=== PATIENT | female | born 1990 | race Caucasian/White ===

== ENCOUNTER 2016-04-27 23:17 | Emergency (ER) | payer OTHER ==
[2016-04-27 23:37] VITALS: RESP 18
[2016-04-27] MEDS ORDERED: SODIUM CHLORIDE 0.9% 1,000 ML IV STA (23:46)
--- NOTE | 2016-04-28 00:08 | ED ---
Nausea/Vomiting/Diarrhea HPI - General Chief complaint: Nausea/Vomiting/Diarrhea Stated complaint: Vomiting Time Seen by Provider: 04/27/16 23:46 Source: patient, RN notes reviewed Mode of arrival: ambulatory Limitations: no limitations - History of Present Illness Initial comments: 25-year-old female presents emergency Department chief complaint nausea vomiting diarrhea that started this afternoon. Patient states a sudden onset of symptoms and she's had multiple episodes of vomiting. She states she's been vomiting every 15 minutes since 9 PM. denies any hematemesis copremesis. Patient denies any melena or hematochezia. She states she has had some sick contacts with similar symptoms. Patient denies fever, chills, headache, dizziness currently neck stiffness. Patient has no chest pain or shortness of breath. Patient states she is currently taking medications for thyroid disease. - Related Data Home Medications Medication Instructions Recorded Confirmed Levothyroxine Sodium [Synthroid] 150 mcg PO DAILY 04/27/16 04/27/16 Previous Rx's Medication Instructions Recorded Ondansetron Odt [Zofran Odt] 4 mg PO Q8HR PRN #10 tab 04/28/16 Allergies Allergy/AdvReac Type Severity Reaction Status Date / Time No Known Allergies Allergy Verified 04/27/16 23:37 Review of Systems ROS Statement: Those systems with pertinent positive or pertinent negative responses have been documented in the HPI. ROS Other: All systems not noted in ROS Statement are negative. Past Medical History Past Medical History: Thyroid Disorder Additional Past Medical History / Comment(s): History of delivery. History of Any Multi-Drug Resistant Organisms: None Reported Past Surgical History: Section Past Anesthesia/Blood Transfusion Reactions: No Reported Reaction Past Psychological History: No Psychological Hx Reported Smoking Status: Never smoker Past Alcohol Use History: Occasional Past Drug Use History: None Reported - Past Family History Father Family Medical History: No Reported History Mother Family Medical History: No Reported History General Exam Limitations: no limitations General appearance: alert, in no apparent distress Head exam: Present: atraumatic, normocephalic, normal inspection Eye exam: Present: normal appearance, PERRL, EOMI. Absent: scleral icterus, conjunctival injection, periorbital swelling ENT exam: Present: normal exam, normal oropharynx, mucous membranes moist, TM's normal bilaterally, normal external ear exam Neck exam: Present: normal inspection, full ROM. Absent: tenderness, meningismus, lymphadenopathy Respiratory exam: Present: normal lung sounds bilaterally. Absent: respiratory distress, wheezes, rales, rhonchi, stridor Cardiovascular Exam: Present: normal rhythm, tachycardia, normal heart sounds. Absent: systolic murmur, diastolic murmur, rubs, gallop, clicks GI/Abdominal exam: Present: soft, tenderness (Mild to moderate right upper quadrant tenderness, epigastric tenderness), normal bowel sounds. Absent: distended, guarding, rebound, rigid Back exam: Absent: CVA tenderness (R), CVA tenderness (L) Skin exam: Present: warm, dry, intact, normal color. Absent: rash Course Vital Signs 04/27/16 23:34 Temperature 96.9 F L Pulse Rate 113 H Respiratory 18 Rate Blood Pressure 105/69 O2 Sat by Pulse 100 Oximetry Medical Decision Making - Medical Decision Making 25-year-old female presented for nausea vomiting. Patient states she does feel much improved at this time. Patient we discharged. Patient appears to have gastroenteritis and has had contacts with some her symptoms - Lab Data Result diagrams: 04/28/16 00:30 04/28/16 00:30 Lab Results 04/28/16 04/28/16 Range/Units 00:30 00:30 WBC 14.4 H (3.8-10.6) k/uL RBC 5.07 (3.80-5.40) m/uL Hgb 14.9 (11.4-16.0) gm/dL Hct 44.1 (34.0-46.0) % MCV 87.0 (80.0-100.0) fL MCH 29.5 (25.0-35.0) pg MCHC 33.9 (31.0-37.0) g/dL RDW 13.2 (11.5-15.5) % Plt Count 287 (150-450) k/uL Neutrophils % 91 % Lymphocytes % 4 % Monocytes % 4 % Eosinophils % 1 % Basophils % 0 % Neutrophils # 13.1 H (1.3-7.7) k/uL Lymphocytes # 0.6 L (1.0-4.8) k/uL Monocytes # 0.6 (0-1.0) k/uL Eosinophils # 0.1 (0-0.7) k/uL Basophils # 0.0 (0-0.2) k/uL Sodium 143 (137-145) mmol/L Potassium 4.1 (3.5-5.1) mmol/L Chloride 106 (98-107) mmol/L Carbon Dioxide 22 (22-30) mmol/L Anion Gap 15 mmol/L BUN 15 (7-17) mg/dL Creatinine 0.70 (0.52-1.04) mg/dL Est GFR (MDRD) Af Amer >60 (>60 ml/min/1.73 sqM) Est GFR (MDRD) Non-Af >60 (>60 ml/min/1.73 sqM) Glucose 112 H (74-99) mg/dL Calcium 9.7 (8.4-10.2) mg/dL Total Bilirubin 0.7 (0.2-1.3) mg/dL AST 21 (14-36) U/L ALT 27 (9-52) U/L Alkaline Phosphatase 72 (38-126) U/L Total Protein 8.1 (6.3-8.2) g/dL Albumin 4.9 (3.5-5.0) g/dL Amylase 64 (30-110) U/L Lipase 88 (23-300) U/L Disposition Clinical Impression: Gastroenteritis Disposition: HOME SELF-CARE Condition: Stable Instructions: Acute Nausea and Vomiting (ED) Additional Instructions: Please return to the Emergency Department if symptoms worsen or any other concerns. Prescriptions: Ondansetron Odt [Zofran Odt] 4 mg PO Q8HR PRN #10 tab PRN Reason: Nausea Time of Disposition: 02:52
[2016-04-28] MEDS: ONDANSETRON 4 MG/2 ML VIAL IVP STA ×2 (00:29→02:31)
[2016-04-28 00:59] LABS: Basophils % (A) 0 %; CH 30.5; CHCM 35.2; Eosinophils # (A) 0.1 k/uL (0-0.7); Eosinophils % (A) 1 %; HCT 44.1 % (34.0-46.0); HDW 3.29; HGB 14.9 gm/dL (11.4-16.0); Luc # (Auto) 0.08; Luc % (Auto) 1; Lymphocytes # (A) 0.6 k/uL (1.0-4.8); Lymphocytes % (A) 4 %; MCH 29.5 pg (25.0-35.0); MCHC 33.9 g/dL (31.0-37.0); Mean Platelet Volume 6.3; Monocytes # (A) 0.6 k/uL (0-1.0); Monocytes % (A) 4 %; Neutrophils # (A) 13.1 k/uL (1.3-7.7); Neutrophils % (A) 91 %; RBC 5.07 m/uL (3.80-5.40); RDW 13.2 % (11.5-15.5); WBC 14.4 k/uL (3.8-10.6); WBC (Perox) 14.53
[2016-04-28 01:03] LABS: ALT 27 U/L (9-52); AST 21 U/L (14-36); Alkaline Phosphatase 72 U/L (38-126); Amylase 64 U/L (30-110); Anion Gap 15 mmol/L; Blood Urea Nitrogen 15 mg/dL (7-17); Calcium 9.7 mg/dL (8.4-10.2); Carbon Dioxide 22 mmol/L (22-30); Chloride 106 mmol/L (98-107); Glucose 112 mg/dL (74-99); Non-African American GFR(MDRD) >60 (>60 ml/min/1.73 sqM); Potassium 4.1 mmol/L (3.5-5.1); Sodium 143 mmol/L (137-145); Total Bilirubin 0.7 mg/dL (0.2-1.3); Total Protein 8.1 g/dL (6.3-8.2)
[2016-04-28] MEDS ORDERED: ONDANSETRON 4 MG ODT STARTER PACK 2 TAB BTL PO STA (01:47)
[2016-04-28 03:51] VITALS: BP 102/56; PULSE 83; TEMP 99.2
== END 2016-04-28 03:49 | disposition home or self-care (01) ==
LOC: EC 23:17
DX: K52.9 Noninfective gastroenteritis and colitis, unspecified (principal); E07.9 Disorder of thyroid, unspecified; Z79.899 Other long term (current) drug therapy
CPT/HCPCS: 36415; 80053; 82150; 83690; 85025; 99284; 96374; 96361; J2405; S0119

== ENCOUNTER 2017-07-07 10:10 | Outpatient (CLI) | payer OTHER ==
[2017-07-07] MEDS ORDERED: LACTATED RINGERS 1,000 ML IV ONE (11:15)
--- NOTE | 2017-07-07 12:32 | US ---
EXAMINATION TYPE: US OB TV Cervical Measurement DATE OF EXAM: 07/07/2017 COMPARISON: NONE REASON FOR EXAM: Per Ordering Physician?this transvaginal scan is to assess the CERVICAL LENGTH for i ncompetence or funneling. GESTATIONAL AGE / DATING Physician Established: (25 weeks/1 days) EDC: 10/19/17 No dates by Current Scan MATERNAL/ SURVEY CERVICAL LENGTH (transvaginal: norm> 2.5cm): 3.6 cm Ultrasound evidence of shortened cervix? no Ultrasound evidence of funneling? no HEART RATE: 146 bpm RHYTHM: Normal IMPRESSION: No sonographic evidence of cervical length shortening or incompetent. Cervix measures 3.6 cm in lengt h. heart rate measures 1 46 bpm.
[2017-07-07 12:43] VITALS: BP 110/70; PULSE 90; RESP 18; TEMP 97.8
--- NOTE | 2017-08-05 13:41 | P.MSEPDOC ---
Presenting Problems - Arrival Data Date of Arrival on Unit: 07/07/17 Time of Arrival on Unit: 10:10 Mode of Transport: Portable - Complaint OB-Reason for Admission/Chief Complaint: Possible Onset of Labor Medical History - Information : 3 Para: 2 Term: 1 : 1 Abortions: Spontaneous or Elective: 0 Number of Living Children: 2 - Gestational Age Gestational Age by VIKTOR (wks/days): 25 Weeks and 1 Days - History Complications: Prior , Prior Review of Systems - Review of Systems Constitutional: No problems Breast: No problems ENT: No problems Cardiovascular: No problems Respiratory: No problems Gastrointestinal: No problems Genitourinary: No problems Musculoskeletal: No problems Neurological: No problems Skin: No problems Comment: 2 previous cs Vital Signs - Temperature Temperature: 97.8 F Temperature Source: Temporal Artery Scan - Pulse Brachial Pulse Rate: 90 Pulse Assessment Method: Automatic Cuff - Respirations Respiratory Rate: 18 O2 Sat by Pulse Oximetry: 99 - Blood Pressure Right Arm Blood Pressure: 110/70 Blood Pressure Mean: 83 Blood Pressure Source: Automatic Cuff Medical Screen Scoring (Pre) - Uterine Contractions Frequency: N/A - Pain Assessment Pain Location and Character: Abdomen Pain Scale Used: Numeric (1 - 10) Pain Intensity: 3 Pain Description: Cramping - Maternal Trauma Maternal Trauma: N/A - Assessment Baseline FHR: 140 Heart Rate - NICHD Category: Category I (Normal) = 0 - Total Score Total Score (Pre): 0 Physician Notification (Pre) - Physician Notified Physician Notified Date: 07/07/17 Physician Notified Time: 11:50 Physician/Practitioner Notifed:: tremp - Notification Comment Comment: Discharge home to follow up with dr diallo next week. Cervical length 3.6 cm per US Disposition - Disposition OB Disposition: Triage, Discharge to home, Written follow up instructions reviewed Discharge Date: 07/07/17 Discharge Time: 12:25 I agree with the RN Medical Screening Exam: Yes Risk & Benefit of care provided described in d/c instruction: Yes Diagnosis: FALSE LABOR BEFORE 37 COMPLETED WEEKS OF GEST, THIRD TRI
== END 2017-07-07 12:25 | disposition home or self-care (01) ==
LOC: FBPOP 10:10
PROVIDERS: ATTEND Obstetrics & Gynecology Obstetrics
DX: O47.03 False labor before 37 completed weeks of gestation, third trimester (principal); Z3A.25 25 weeks gestation of pregnancy
CPT/HCPCS: 96360; 76817; G0463; 99213

== ENCOUNTER 2017-08-16 23:03 | Outpatient (CLI) | payer OTHER ==
[2017-08-17 00:15] VITALS: BP 111/73; PULSE 96; RESP 16; TEMP 97.9
--- NOTE | 2017-08-23 11:03 | P.MSEPDOC ---
Presenting Problems - Arrival Data Date of Arrival on Unit: 08/16/17 Time of Arrival on Unit: 23:00 Mode of Transport: Ambulatory - Complaint OB-Reason for Admission/Chief Complaint: Possible Onset of Labor Medical History - Information : 3 Para: 2 Term: 1 : 1 Abortions: Spontaneous or Elective: 0 Number of Living Children: 2 - Gestational Age Gestational Age by VIKTOR (wks/days): 31 Weeks and 0 Days - History Complications: Prior Review of Systems - Review of Systems Constitutional: No problems Breast: No problems ENT: No problems Cardiovascular: No problems Respiratory: No problems Gastrointestinal: No problems Genitourinary: No problems Musculoskeletal: No problems Neurological: No problems Skin: No problems Vital Signs - Temperature Temperature: 97.9 F Temperature Source: Temporal Artery Scan - Pulse Supine Pulse Rate: 96 Pulse Assessment Method: Automatic Cuff - Respirations Respiratory Rate: 16 Oxygen Delivery Method: Room Air - Blood Pressure Left Arm Blood Pressure: 111/73 Blood Pressure Mean: 85 Blood Pressure Source: Automatic Cuff Medical Screen Scoring (Pre) - Cervical Exam Dilation: 0 cm = 0 Membranes: Intact - Uterine Contractions Frequency: N/A - Maternal Vital Signs Maternal Temperature: N/A Signs of Preeclampsia: N/A Maternal Respirations: N/A - Assessment Baseline FHR: 140 Heart Rate - NICHD Category: Category I (Normal) = 0 NST: Reactive Position: N/A - Total Score Total Score (Pre): 0 Physician Notification (Pre) - Physician Notified Physician Notified Date: 08/17/17 Physician Notified Time: 00:14 Physician/Practitioner Notifed:: dr diallo New Order Received: Yes - Notification Comment Comment: pt to discharge home Disposition - Disposition OB Disposition: Discharge to home Discharge Date: 08/17/17 Discharge Time: 00:15 I agree with the RN Medical Screening Exam: Yes Risk & Benefit of care provided described in d/c instruction: Yes Diagnosis: FALSE LABOR BEFORE 37 COMPLETED WEEKS OF GEST, THIRD TRI
== END 2017-08-17 00:16 | disposition home or self-care (01) ==
LOC: FBPOP 23:03
PROVIDERS: ATTEND Obstetrics & Gynecology
DX: O47.03 False labor before 37 completed weeks of gestation, third trimester (principal); Z3A.31 31 weeks gestation of pregnancy
CPT/HCPCS: 59025; G0463; 99213

== ENCOUNTER 2017-09-17 19:48 | Outpatient (CLI) | payer OTHER ==
[2017-09-17 22:07] VITALS: BP 117/69; PULSE 94; RESP 16; TEMP 98.1
--- NOTE | 2017-09-18 09:23 | P.MSEPDOC ---
Presenting Problems - Arrival Data Date of Arrival on Unit: 09/17/17 Time of Arrival on Unit: 20:11 Mode of Transport: Ambulatory - Complaint OB-Reason for Admission/Chief Complaint: Possible Onset of Labor Medical History - Information : 3 Para: 2 - Gestational Age Gestational Age by VIKTOR (wks/days): 35 Weeks and 3 Days Review of Systems - Review of Systems Constitutional: No problems Breast: No problems ENT: No problems Cardiovascular: No problems Respiratory: No problems Gastrointestinal: No problems Genitourinary: No problems Musculoskeletal: No problems Neurological: No problems Skin: No problems Vital Signs - Temperature Temperature: 98.1 F Temperature Source: Temporal Artery Scan - Pulse Right Sitting Brachial Pulse Rate: 94 Pulse Assessment Method: Automatic Cuff - Respirations Respiratory Rate: 16 Oxygen Delivery Method: Room Air O2 Sat by Pulse Oximetry: 99 - Blood Pressure Right Arm Sitting Blood Pressure: 117/69 Blood Pressure Mean: 85 Blood Pressure Source: Automatic Cuff Medical Screen Scoring (Pre) - Cervical Exam Dilation: 0 cm = 0 Effacement: Exam Deferred Membranes: Intact - Uterine Contractions Frequency: > 5 minutes apart = 1 Duration: > 40 seconds = 2 Intensity: N/A - Maternal Vital Signs Maternal Temperature: N/A Maternal Blood Pressure: N/A Signs of Preeclampsia: N/A Maternal Respirations: N/A - Pain Assessment Pain Location and Character: Lower, Abdomen Pain Scale Used: Numeric (1 - 10) Pain Intensity: 1 Pain Description: Cramping Pain Radiation Location: 0 Pain Frequency: Intermittent Pain Duration: 3 Pain Duration Units: Hours Pain Behavior: None Exhibited Effects of Pain: 0 Pain Aggravating Factors: None - Assessment Baseline FHR: 145 Heart Rate - NICHD Category: Category I (Normal) = 0 NST: Reactive Position: N/A Station: N/A - Total Score Total Score (Pre): 3 - Level of Risk Level of Risk: Low (0-5) Physician Notification (Pre) - Physician Notified Physician Notified Date: 09/17/17 Physician Notified Time: 20:30 Physician/Practitioner Notifed:: dr swanson New Order Received: Yes - Notification Comment Comment: pt to be discharged home after 30 mins of additional monitoring if cervix and contx pattern remain unchanged. Disposition - Disposition OB Disposition: Discharge to home Discharge Date: 07/14/18 Discharge Time: 21:15 I agree with the RN Medical Screening Exam: Yes Risk & Benefit of care provided described in d/c instruction: Yes Diagnosis: FALSE LABOR, UNSPECIFIED
== END 2017-09-17 21:15 | disposition home or self-care (01) ==
LOC: FBPOP 19:48
PROVIDERS: ATTEND Obstetrics & Gynecology
DX: O47.03 False labor before 37 completed weeks of gestation, third trimester (principal); Z3A.35 35 weeks gestation of pregnancy
CPT/HCPCS: 99213

== ENCOUNTER 2017-09-25 05:35 | Inpatient (IN) | payer OTHER ==
[2017-09-25] MEDS ORDERED: LACTATED RINGERS 1,000 ML IV ONE (07:06)
[2017-09-25] MEDS ORDERED: CITRIC ACID-SODIUM CITRATE 15 ML CUP PO ONE (07:06)
[2017-09-25] MEDS ORDERED: LACTATED RINGERS 1,000 ML IV SCH (07:15)
[2017-09-25 07:39] LABS: Basophils % (A) 0 %; Eosinophils # (A) 0.1 k/uL (0-0.7); Eosinophils % (A) 1 %; HGB 12.3 gm/dL (11.4-16.0); Hyperchromasia Slight; Lymphocytes # (A) 1.9 k/uL (1.0-4.8); Lymphocytes % (A) 18 %; MCH 32.6 pg (25.0-35.0); MCV 93.2 fL (80.0-100.0); Mean Platelet Volume 8.5; Monocytes # (A) 0.6 k/uL (0-1.0); Monocytes % (A) 6 %; Neutrophils # (A) 7.4 k/uL (1.3-7.7); Neutrophils % (A) 72 %; Platelet Count 164 k/uL (150-450); Poikilocytosis Slight; RBC 3.76 m/uL (3.80-5.40); RDW 15.2 % (11.5-15.5); WBC 10.2 k/uL (3.8-10.6)
--- NOTE | 2017-09-25 07:39 | P.HPOB ---
History of Present Illness H&P Date: 09/25/17 Chief Complaint: Strong regular uterine contractions This is a 26-year-old 3 para 03/07/2001 EDC 10/19/2017 at 36-4/7 weeks' gestation. Patient was scheduled for repeat section and tubal ligation at 39 weeks, but presents today in active labor. Uterine contractions are occurring every 3 minutes apart and she has made cervical change after observation in the triage area. Fetus is been active throughout the . She denies vaginal bleeding or fluid leakage. Past medical history is significant for hypothyroidism. Past surgical history section 2010, 2014. Current medications levothyroxine 125 mg daily, vitamin daily. ALLERGIES none known. Family history significant for bipolar disorder, situs inversus, hypothyroidism , hypoplastic heart Social history patient has never been a smoker, she denies drugs or alcohol use. She is her Obstetric history is significant for blood type A positive, rubella status immune. Thyroid function studies within normal limits. VDRL testing, hepatitis B surface antigen, HIV testing and urine culture all negative. Group B strep cultures negative. On exam this is a pleasant white female, 5 foot 4 inches, 145 pounds, vital signs are stable and the patient is afebrile. The general physical exam is within normal limits. There is no peripheral edema. The chest is clear. The cervix is 3 cm dilated, 100% effaced, vertex presentation, intact. heart rate is consistent with reactive NST. Impression: 36-4/7 weeks intrauterine , 2 previous sections declining , active labor, undesired fertility wishing tubal ligation. Plan: Close maternal and surveillance. We'll proceed with repeat low transverse section now with tubal ligation. Anesthesia staff aware. Review of Systems Constitutional: Reports as per HPI Past Medical History Past Medical History: Thyroid Disorder Additional Past Medical History / Comment(s): History of delivery. History of Any Multi-Drug Resistant Organisms: None Reported Past Surgical History: Section Past Anesthesia/Blood Transfusion Reactions: No Reported Reaction Smoking Status: Never smoker - Past Family History Father Family Medical History: No Reported History Mother Family Medical History: No Reported History Medications and Allergies Home Medications Medication Instructions Recorded Confirmed Type Levothyroxine Sodium [Synthroid] 125 mcg PO DAILY 04/27/16 09/25/17 History 78/Iron/Folate 1/Dha 1 tab PO DAILY 07/07/17 09/25/17 History [Prenate Dha Softgel] Ranitidine HCl [Zantac] 150 mg PO HS 07/07/17 09/25/17 History Allergies Allergy/AdvReac Type Severity Reaction Status Date / Time No Known Allergies Allergy Verified 09/25/17 05:55 Exam Vital Signs Temp Pulse Resp BP 09/25/17 06:00 97.0 F L 82 16 117/78 Intake and Output 09/24/17 09/25/17 09/25/17 22:59 06:59 14:59 Other: Weight 64.864 kg See dictation please Assessment and Plan Assessment: 36-4/7 weeks intrauterine , active labor, 2 previous C-sections desiring same, undesired fertility. Plan: We'll proceed with repeat low transverse section and tubal ligation. Time with Patient: Less than 30
[2017-09-25] MEDS ORDERED: PHENYLEPHRINE-0.9% NACL SYG 1 MG/10 ML SYRINGE ONE (07:45)
[2017-09-25] MEDS ORDERED: ONDANSETRON 4 MG/2 ML VIAL ONE (07:45)
[2017-09-25] MEDS ORDERED: OXYTOCIN 10 UNIT/ML 1 ML VIAL ONE (07:45)
[2017-09-25] MEDS ORDERED: MORPHINE SULFATE (PF) 0.3 MG/0.3 ML SYR ONE (07:45)
[2017-09-25] MEDS ORDERED: NALBUPHINE 10 MG/ML VIAL (10ML MDV) ONE (07:45)
[2017-09-25] MEDS ORDERED: NALBUPHINE 10 MG/ML VIAL (10ML MDV) IV PRN (08:17)
[2017-09-25] MEDS ORDERED: HYDROmorphone 1 MG/ML 1 ML SYRINGE IVP PRN (08:17)
[2017-09-25] MEDS ORDERED: NALOXONE 0.4 MG/ML 1 ML VIAL IV PRN ×2 (08:17→08:39)
[2017-09-25] MEDS ORDERED: diphenhydrAMINE 50 MG CAP PO PRN (08:39)
[2017-09-25] MEDS ORDERED: ACETAMINOPHEN TAB 325 MG TAB PO PRN (08:39)
[2017-09-25] MEDS ORDERED: ONDANSETRON 4 MG/2 ML VIAL IVP PRN (08:39)
[2017-09-25] MEDS ORDERED: diphenhydrAMINE 50 MG/ML 1 ML VIAL IVP PRN ×2 (08:39)
[2017-09-25] MEDS ORDERED: ZOLPIDEM 5 MG TAB PO PRN (08:39)
[2017-09-25] MEDS ORDERED: diphenhydrAMINE 25 MG CAP PO PRN (08:39)
[2017-09-25] MEDS ORDERED: METOCLOPRAMIDE 5 MG/ML 2 ML VIAL IVP PRN (08:39)
--- NOTE | 2017-09-25 08:39 | P.OP ---
Date of Procedure: 09/25/17 Preoperative Diagnosis: 36-4/7 weeks intrauterine , 2 previous C-sections, active labor, declining , undesired fertility Postoperative Diagnosis: Same, liveborn male Procedure(s) Performed: Repeat low transverse section, tubal ligation with Filshie clips Anesthesia: spinal Surgeon: Val Diego Form Setter #1: Harshal Thomas Estimated Blood Loss (ml): 600 IV fluids (ml): 1,000 Urine output (ml): 350 Pathology: other (Placenta) Condition: stable Disposition: PACU Description of Procedure: Patient is brought to the operating room where a spinal analgesia is administered. Antibiotics are given. The appropriate timeout is performed to assure proper patient and procedural identification. Vaughn catheter is placed to direct drainage. She is placed in the dorsal supine position with left lateral uterine displacement. The abdomen is prepped and draped in usual sterile fashion. Analgesia is checked and noted to be adequate. A repeat low transverse skin incision is made in this is carried down to the subcutaneous tissue to the fascia. Fascia is isolated, scored and extended bilaterally with curved Hurt scissors. Peritoneum is next identified and incised, there is no bowel or bladder involvement. The bladder flap is placed over the dome of the bladder, the bladder flap is created and at all times the bladder was kept well from the operative field to avoid bladder and/or ureteral injury. A low transverse uterine incision is made in this is extended bluntly. The maternal is delivered in the occiput anterior position, there is no nuchal cord noted. The oropharynx, nasopharynx, and external nares were all bulb suctioned on the abdomen. Patient is officially delivered of a liveborn male at 0805 hrs. Umbilical cord is doubly clamped and ligated, he is handed to waiting nurses for evaluation where scores of 9 and 9 at one and 5 minutes respectively are given. Infant weighs 2750 g or 6 lbs. 1 oz. The placenta is delivered manually, it is inspected and noted to be intact with trivascular cord at 0806 hrs. The uterus is then swept clean with a sterile sponge to avoid any retained products of conception. It is massaged for excellent hemostasis. The uterus is closed in a single full-thickness fashion with running locking suture of 0 Vicryl. The abdomen is then suctioned with suction on guard posterior to the uterus. Filshie clips are placed in the isthmic portions of both tubes, with care to traverse the entire diameter of the tube into the mesal salpinx. Bilateral ovaries appear normal to inspection. The uterus is then placed back into the abdominal cavity. Bilateral gutters are inspected and cleaned. Hemostasis is excellent. Peritoneum was allowed to close by secondary intention. Fascia is closed in a running stitch of 0 Vicryl with over ligation in the midline. Subcutaneous tissue is irrigated, noted to be clean and dry. It is reapproximated with 3-0 Vicryl in a running fashion. Wide disha are used for final skin closure. All sponge needle and enhancement counts are correct at the end of the procedure. Patient is brought back to recovery room in very good condition with stable vital signs including blood pressure 106/48, pulse 68 , 100% O2 saturation. Patient and her are requesting circumcision further infant son. Vaguhn is noted to be draining clear urine at the end of our procedure.
[2017-09-25] MEDS ORDERED: OXYTOCIN 20 UNITS/1000 ML NS 1,000 ML IV SCH (10:30)
[2017-09-25 11:07] VITALS: BMI 24.5
[2017-09-25] MEDS: KETOROLAC 30 MG/ML 1 ML VIAL IVP PRN ×2 (12:26→22:08)
[2017-09-25] MEDS: LACTATED RINGERS 1,000 ML IV SCH ×2 (14:34→18:19)
[2017-09-25] MEDS: SENNOSIDES-DOCUSATE SODIUM 1 EACH TAB PO SCH (20:03)
[2017-09-26] MEDS: SIMETHICONE 80 MG CHEWABLE PO PRN ×2 (04:03→17:41)
[2017-09-26] MEDS: KETOROLAC 30 MG/ML 1 ML VIAL IVP PRN (04:05)
[2017-09-26 08:05] LABS: Basophils % (A) 0 %; Eosinophils # (A) 0.1 k/uL (0-0.7); Eosinophils % (A) 1 %; HCT 32.7 % (34.0-46.0); HGB 11.1 gm/dL (11.4-16.0); Lymphocytes # (A) 1.1 k/uL (1.0-4.8); Lymphocytes % (A) 10 %; MCH 32.1 pg (25.0-35.0); MCV 94.3 fL (80.0-100.0); Monocytes # (A) 0.4 k/uL (0-1.0); Monocytes % (A) 4 %; Neutrophils % (A) 84 %; Platelet Count 184 k/uL (150-450); Poikilocytosis Slight; RBC 3.47 m/uL (3.80-5.40); RDW 15.3 % (11.5-15.5); WBC 10.8 k/uL (3.8-10.6)
--- NOTE | 2017-09-26 08:13 | P.PN ---
Subjective Progress Note Date: 09/26/17 Principal diagnosis: post operative day #1 negative flatus, pain well controlled Objective - Vital Signs Vital signs: Vital Signs Temp 98.1 F 09/26/17 03:58 Pulse 85 09/26/17 03:58 Resp 16 09/26/17 07:00 BP 100/68 09/26/17 03:58 Pulse Ox 98 09/26/17 05:00 Intake & Output 09/25/17 09/26/17 09/26/17 18:59 06:59 18:59 Output Total 0 1950 Balance -2449 -1949 Weight 64.864 kg Output: Urine 1849 1950 Estimated Blood Loss 600 Other: Voiding Method Toilet # Voids 1 - Constitutional General appearance: Present: average body habitus, cooperative - EENT Eyes: Present: PERRLA ENT: Present: hearing grossly normal - Neck Neck: Present: normal ROM Thyroid: bilateral: normal size - Respiratory Respiratory: bilateral: CTA - Cardiovascular Rhythm: regular - Gastrointestinal General gastrointestinal: Present: normal bowel sounds - Genitourinary Genitourinary Comment(s): incision well approximated clean and joceline. Fundus firm, nontender, 18 week size - Neurologic Neurologic: Present: CNII-XII intact - Musculoskeletal Musculoskeletal: Present: gait normal, strength equal bilaterally - Psychiatric Psychiatric: Present: A&O x's 3, appropriate affect, intact judgment & insight - Labs CBC & Chem 7: 09/26/17 07:07 Labs: Abnormal Lab Results - Last 24 Hours (Table) 09/26/17 Range/Units 07:07 WBC 10.8 H (3.8-10.6) k/uL RBC 3.47 L (3.80-5.40) m/uL Hgb 11.1 L (11.4-16.0) gm/dL Hct 32.7 L (34.0-46.0) % Neutrophils # 9.0 H (1.3-7.7) k/uL Assessment and Plan Assessment: doing well post operative day 1 Plan: Advance diet and activity. Possible discharge home tomorrow. Time with Patient: Less than 30
--- NOTE | 2017-09-26 08:58 | P.PN ---
Progress Note - Text Progress Note Date: 09/26/17 26-year-old female status post section with Duramorph spinal postop day #1. Patient has no motor issues, no sensory issues, ambulating. Patient has no complaints of pruritus.
[2017-09-26] MEDS: HYDROcodone/APAP 5-325MG 1 EACH TAB PO PRN ×2 (10:38→19:33)
[2017-09-26] MEDS: SENNOSIDES-DOCUSATE SODIUM 1 EACH TAB PO SCH ×2 (10:42→20:12)
[2017-09-26] MEDS: IBUPROFEN 600 MG TAB PO PRN ×2 (13:37→23:14)
[2017-09-27] MEDS: HYDROcodone/APAP 5-325MG 1 EACH TAB PO PRN ×2 (02:05→08:52)
[2017-09-27] MEDS: IBUPROFEN 600 MG TAB PO PRN ×2 (05:12→11:22)
[2017-09-27 08:09] VITALS: BP 106/67; PULSE 70; RESP 18; TEMP 97.7
--- NOTE | 2017-09-27 08:10 | P.DS ---
Providers Date of admission: 09/25/17 07:05 Expected date of discharge: 09/27/17 Attending physician: Val Diego Primary care physician: Val Diego [facility] Course: This is a 26-year-old white female 3 para 2002 status post 2 previous sections, who presented in active spontaneous labor. was remarkable for blood type A+, rubella status immune, group B strep cultures negative. Patient had undesired fertility and was wishing tubal ligation. Please see admitting history and physical for details. Patient was admitted and underwent a repeat low transverse section with tubal ligation utilizing Filshie clips. Infant did well, 6 lbs. 1 oz., 2750 g, scores 9 and 9 at one and 5 minutes respectively. Ovaries and tubes appeared normal to inspection, please see dictated operative note for details. Estimate a blood loss 600 mL's. This morning the patient is doing well. She is voiding, ambulating and passing flatus without difficulty. Vital signs are stable and she is afebrile. Incision is clean and dry, intact, disha will be removed and Steri-Strips applied. Breast-feeding is going well and a prescription for breast pump is provided. Patient is being discharged home therefore in very good condition. She will follow-up with me in the office in 2 weeks for incision check. I have reminded her no intercourse, tampons or douching. She will use [id number] ibuprofen products, 200 mg pills, 3 every 6 hours as needed. She will stay on her vitamin daily. I've asked her to call me with any fevers shakes or chills, foul smelling or copious lochia, with the passage of large blood clots, or indeed with any pain difficulties or concerns. Patient Condition at Discharge: Good Plan - Discharge Summary Discharge Rx Participant: No New Discharge Prescriptions: No Action Levothyroxine Sodium [Synthroid] 125 mcg PO DAILY Ranitidine HCl [Zantac] 150 mg PO HS 78/Iron/Folate 1/Dha [Prenate Dha Softgel] 1 tab PO DAILY Discharge Medication List Levothyroxine Sodium [Synthroid] 125 mcg PO DAILY 04/27/16 [History] 78/Iron/Folate 1/Dha [Prenate Dha Softgel] 1 tab PO DAILY 07/07/17 [ History] Ranitidine HCl [Zantac] 150 mg PO HS 07/07/17 [History] Follow up Appointment(s)/Referral(s): Val Diego MD [Primary Care Provider] - 2 Weeks Discharge Disposition: HOME SELF-CARE
[2017-09-27] MEDS: SENNOSIDES-DOCUSATE SODIUM 1 EACH TAB PO SCH (08:53)
== END 2017-09-27 13:47 | disposition home or self-care (01) | DRG 766 ==
LOC: FBPOP 05:35 → 4FBP 07:05
PROVIDERS: ADMIT Obstetrics & Gynecology; ATTEND Obstetrics & Gynecology
PROC: 0UL70CZ Occlusion of Bilateral Fallopian Tubes with Extraluminal Device, Open Approach (ICD-10-PCS; 2017-09-25)
PROC: 10D00Z1 Extraction of Products of Conception, Low, Open Approach (ICD-10-PCS; principal; 2017-09-25 07:44)
DX: O60.14X0 Preterm labor third trimester with preterm delivery third trimester, not applicable or unspecified (principal); O99.284 Endocrine, nutritional and metabolic diseases complicating childbirth; E03.9 Hypothyroidism, unspecified; O34.211 Maternal care for low transverse scar from previous cesarean delivery; Z3A.36 36 weeks gestation of pregnancy; Z37.0 Single live birth; Z30.2 Encounter for sterilization; N85.8 Other specified noninflammatory disorders of uterus; Z79.890 Hormone replacement therapy; Z79.899 Other long term (current) drug therapy; Z81.8 Family history of other mental and behavioral disorders; Z83.49 Family history of other endocrine, nutritional and metabolic diseases; Z82.49 Family history of ischemic heart disease and other diseases of the circulatory system; Z84.89 Family history of other specified conditions
CPT/HCPCS: 59025; 85025; 86850; 86900; 86901; 88307; 99213

== ENCOUNTER → 2018-07-11 | Outpatient (CLI) | payer OTHER ==
--- NOTE | 2018-07-11 10:22 | USB ---
Reason for exam: clinical finding. Indicated problem(s): lump or thickening in the right breast. Physical Findings: Nurse Summary: Patient complains of right breast lump x 6 weeks, 1cm firm nontender nodule right breast 3 o'clock (nurse mj). US Breast RT Right complete breast ultrasound includes all four quadrants, the retroareolar region and axilla. Finding demonstrates a 0.6 x 0.5 x 0.7cm hypoechoic lesion at 2 o'clock and a 0.9 x 0.7 x 1.0cm hypoechoic lesion at 2 o'clock. These results were verbally communicated with the patient and result sheet given to the patient on 07/11/18. ASSESSMENT: Suspicious, BI-RAD 4 RECOMMENDATION: Ultrasound core biopsy of the right breast. Called Dr. Jonas with mammographic findings and has referred patient to Dr. Carrizales. Dr. Carrizales to call patient and will schedule a consult. PRELIMINARY REPORT CALLED AND FAXED TO DR. CARRIZALES ON 07/11/18.
== END | disposition home or self-care (01) ==
LOC: RADUSWWP 08:47
PROVIDERS: ATTEND Internal Medicine
DX: N63.10 Unspecified lump in the right breast, unspecified quadrant (principal)

== ENCOUNTER → 2018-07-11 | Outpatient (CLI) | payer OTHER ==
[2018-07-11 12:18] VITALS: BP 119/77; PULSE 85; RESP 16; TEMP 98.6; BMI 20.7
--- NOTE | 2018-07-11 12:35 | P.GSHP ---
History of Present Illness H&P Date: 07/11/18 Chief Complaint: abnormal ultrasound of the right breast The patient is a 27-year-old white female who is 9 months . She was nursing her baby when she noticed some fullness in her right breast. She thought this was related to a clogged duct but the fullness persisted. She therefore underwent an ultrasound today of the area of concern. The ultrasound revealed a 0.7 x 0.6 cm hypoechoic lesion at 2:00 and a 0.9 x 1 cm hypoechoic lesion at 2:00. This was considered BIRADS 4 and ultrasound-guided core biopsy of the right breast was recommended. The patient has not noted any pain in her breasts. She has no abnormal nipple discharge but she is nursing. Anything like this before. Patient has resumed her menstrual periods and mammogram normal. Family history: 1. grandfather paternal lung Menstrual history: Menarche:15 : 3, 3 children, breast fed: yes periods: regular BCP: none hormones: injections when to maintain the Surgical history: 1. times three 2. wisdom teeth 3. tubaligation Medical History: hypothyroid Social History: smoke: none alcohol: occasional drugs: none - Constitutional Constitutional: Denies chills, Denies fever - EENT Eyes: denies blurred vision, denies pain Ears: deny: decreased hearing, tinnitus Ears, nose, mouth and throat: Reports headache, Denies sore throat - Breasts Breasts: bilateral: as per HPI - Cardiovascular Cardiovascular: Denies chest pain, Denies shortness of breath - Respiratory Respiratory: Denies cough, Denies 7 - Gastrointestinal Gastrointestinal: Denies abdominal pain, Denies diarrhea, Denies nausea, Denies vomiting - Genitourinary (Female) Genitourinary: Denies dysuria, Denies hematuria - Menstruation Menstruation: Reports period normal - Musculoskeletal Musculoskeletal: Denies myalgias - Integumentary Integumentary: Denies pruritus, Denies rash - Neurological Neurological: Denies numbness, Denies weakness - Psychiatric Psychiatric: Denies anxiety, Denies depression - Endocrine Comment: hypothyroid - Hematologic/Lymphatic Comment: none - Allergic/Immunologic Allergic/Immunologic: Reports as per HPI Past Medical History Past Medical History: Thyroid Disorder Additional Past Medical History / Comment(s): History of delivery. History of Any Multi-Drug Resistant Organisms: None Reported Past Surgical History: Section Past Anesthesia/Blood Transfusion Reactions: No Reported Reaction Smoking Status: Never smoker - Past Family History Father Family Medical History: No Reported History Mother Family Medical History: No Reported History Medications and Allergies Home Medications Medication Instructions Recorded Confirmed Type Levothyroxine Sodium [Synthroid] 125 mcg PO HS 04/27/16 07/11/18 History 78/Iron/Folate 1/Dha 1 tab PO HS 07/07/17 07/11/18 History [Prenate Dha Softgel] Allergies Allergy/AdvReac Type Severity Reaction Status Date / Time No Known Allergies Allergy Verified 07/11/18 12:07 Surgical - Exam BMI 20.8 - General well developed, well nourished, no distress - Eyes normal ocular movement, no icteric - ENT no hearing loss, no congestion - Neck no masses, trachea midline - Respiratory normal respiratory effort, clear to auscultation - Cardiovascular Rhythm: regular Heart Sounds: normal: S1, S2 - Abdomen Abdomen: soft, non tender, no guarding, no rigid, no rebound - Integumentary normal turgor - Neurologic no disoriented, no combative - Musculoskeletal normal gait, normal posture - Psychiatric oriented to time, oriented to person, oriented to place, speech is normal, memory intact breast exam: right breast: Multi-positional exam area of increased nodularity at the 3 o'clock position,proximally 1 cm in size, examination of the remainder of the breast does not reveal any dominant masses or nodules of concern, no abnormal nipple discharge Right axilla: No adenopathy of concern Left breast: Multi-positional exam no dominant masses or nodules of concern Left axilla: No adenopathy of concern Results Results Reviewed for ultrasound Assessment and Plan Assessment: Impression: 1. Probable lump right breast 2. Abnormal ultrasound right breast 3. Fibrocystic breast changes 4. Patient nursing 5. Family history of cancer 6. Hypothyroidism Plan: 1. Right breast ultrasound core biopsy 2. Medical management of medical conditions This and benefits ultrasound core biopsy discussed with the patient. She wishes to proceed in this was scheduled in the near future. Recommendation depending on results of the biopsy. Cc: Shanel Jonas, [facility]
== END | disposition home or self-care (01) ==
LOC: WWCWWP 12:00
PROVIDERS: ATTEND Surgery
DX: Z53.9 Procedure and treatment not carried out, unspecified reason (principal)

== ENCOUNTER → 2018-07-21 | Day surgery (SDC) | payer OTHER ==
[2018-07-21 11:06] VITALS: RESP 16; BMI 20.7
[2018-07-21 12:31] VITALS: BP 97/66; PULSE 73; TEMP 98.1
--- NOTE | 2018-07-21 14:17 | USB ---
EXAMINATION TYPE: US breast needle core RT, US breast needle core addl RT DATE OF EXAM: 07/21/2018 HISTORY: Right breast masses. Abnormal breast ultrasound FINDINGS: Maximal barrier technique was utilized. The skin overlying a suitable path to the patient's right breast mass was localized at the 2 to 3:00 position of the right breast with ultrasound and the overlying skin prepped and draped. Ultrasound was utilized with sterile technique. Lidocaine was used for local anesthesia. A skin joel was made with a scalpel. An 18-gauge needle was advanced under direct ultrasound guidance and core specimen obtained of the mass, additional pass was obtained. Attention then directed to the lesion at the same position position slightly medially to the first mass with similar appearance. Core specimen obtained using similar technique. Specimens submitted in formalin to Pathology. Following the procedure, hemostasis achieved and the patient is discharged in stable condition, patient did experience a transient vagal response resolved spontaneously within several minutes. There is minimal bleeding. IMPRESSION:STATUS POST ULTRASOUND GUIDED CORE BIOPSY OF 2 right breast MASSES, PATHOLOGY IS PENDING. THIS PROCEDURE IS PERFORMED BY THE UNDERSIGNED. Pathology Results: Benign A. RIGHT BREAST, 2:00 SITE A, ULTRASOUND GUIDED CORE BIOPSY: Benign breast tissue with fibrosis, fat necrosis, and degenerated/amorphous material. Severely limited sample. B. RIGHT BREAST, 2:00 SITE B, ULTRASOUND GUIDED CORE BIOPSY: Scanty benign breast tissue with fat necrosis, fibrosis and degenerative changes. Severely limited sample. Recommendation Follow up ultrasound of the right breast in 6 months. MTDD
== END | disposition home or self-care (01) ==
LOC: RADUSWWP 10:39
PROVIDERS: ATTEND Surgery
DX: N60.31 Fibrosclerosis of right breast (principal)
CPT/HCPCS: 88305; 19083; 19084; J2001

== ENCOUNTER → 2018-07-28 | Outpatient (CLI) | payer OTHER ==
[2018-07-28 09:55] VITALS: BP 111/76; PULSE 78; RESP 16; TEMP 98.1; BMI 20.7
--- NOTE | 2018-07-28 10:23 | P.PN ---
Subjective Progress Note Date: 07/28/18 Principal diagnosis: Shruti is a 27-year-old white female who is status post ultrasound-[place] [id number]. Pathology revealed benign breast tissue with fat necrosis at 2 biopsy sites. The patient did develop some ecchymosis at the site of the biopsy bed otherwise has no evidence of any infection or complaints. The ultrasound was reviewed with the radiologist and adequate sampling of site a was performed there is a question as to whether site B was adequately sampled however it does appear to be the same as site a. Pathology states that it was a limited sample. Objective - Vital Signs Vital signs: Vital Signs Temp 98.1 F 07/28/18 09:51 Pulse 78 07/28/18 09:51 Resp 16 07/28/18 09:51 BP 111/76 07/28/18 09:51 Pulse Ox 100 07/28/18 09:51 Intake & Output 07/27/18 07/28/18 07/28/18 18:59 06:59 18:59 Weight 54.885 kg - Exam BMI 20.8 - Constitutional General appearance: Present: average body habitus - EENT Eyes: Present: EOMI ENT: Present: hearing grossly normal - Neck Neck: Present: normal ROM - Respiratory Respiratory: bilateral: CTA - Cardiovascular Rhythm: regular Heart sounds: normal: S1, S2 - Integumentary Integumentary: Present: normal turgor - Musculoskeletal Musculoskeletal: Present: gait normal - Psychiatric Psychiatric: Present: A&O x's 3, appropriate affect, intact judgment & insight - Additional findings Additional findings: Breast examination: Examination of the core biopsy site was evaluated the area of nodularity remains persistent There is some ecchymosis at the site No evidence of any infection Assessment and Plan Assessment: Impression: 1. Status post core biopsy left breast, pathology fat necrosis degenerated amorphous material 2. Fibrocystic breast changes 3. Patient currently breast feeding 4. Persistent palpable nodularity right breast at 3 o'clock position Plan: 1. Follow-up examination after patient stops breast-feeding in 2 months 2. Discuss case with OB 3. If the area increases in size with recommend excisional biopsy immediately I have discussed with the patient the following options nipple on stopping breast-feeding at this time and excision of palpable abnormality, #2 repeat examination in 2 months when patient stops breast-feeding #3 repeat ultrasound biopsy of the second lesion as there is some question as to how adequate sampling was of this lesion. After discussion the patient wishes to continue her breast-feeding and will follow-up in 2 months. She understands that I cannot guarantee what the pathology is less the areas excised however the core biopsy does appear to be benign and the patient wishes to continue breast- feeding. Cc: Silverio Clinc
== END | disposition home or self-care (01) ==
LOC: WWCWWP 09:44
PROVIDERS: ATTEND Surgery
DX: Z53.9 Procedure and treatment not carried out, unspecified reason (principal)

== ENCOUNTER → 2018-09-29 | Outpatient (CLI) | payer SELFPAY ==
--- NOTE | 2018-09-29 10:26 | P.PN ---
Subjective Progress Note Date: 09/29/18 The patient is a 27-year-old white female who is 12 months . She was nursing her baby when she noticed some fullness in her right breast. She stopped nursing this week. She thought this was related to a clogged duct but the fullness persisted. She therefore underwent an ultrasound of the area of concern. The ultrasound revealed a 0.7 x 0.6 cm hypoechoic lesion at 2:00 and a 0.9 x 1 cm hypoechoic lesion at 2:00. This was considered BIRADS 4 and ultrasound-guided core biopsy of the right breast was recommended. The patient has not noted any pain in her breasts. She has no abnormal nipple discharge but she is nursing. She has not had anything like this before. Patient has resumed her menstrual periods. She had ultrasound core biopsy of 2 sites on 07-21-18. Both sites were benign, however the tissue obtaied was scanty. The area of nodularity has not gone away. Family history: 1. grandfather paternal lung Menstrual history: Menarche:15 : 3, 3 children, breast fed: yes periods: regular BCP: none hormones: injections when to maintain the Surgical history: 1. times three 2. wisdom teeth 3. tubaligation Medical History: hypothyroid Social History: smoke: none alcohol: occasional drugs: none Review of systems: HEENT: Negative Lungs: Negative Heart: Negative GI: Negative : As above Breasts: As above Musculoskeletal: Negative Objective - Vital Signs Vital signs: Vital Signs Temp 97.9 F 09/29/18 10:06 Pulse 84 09/29/18 10:06 Resp 16 09/29/18 10:06 BP 119/77 09/29/18 10:06 Pulse Ox 100 09/29/18 10:06 Intake & Output 09/28/18 09/29/18 09/29/18 18:59 06:59 18:59 Weight 54.885 kg - Exam BMI 20.8 - Constitutional General appearance: Present: average body habitus - EENT Eyes: Present: EOMI ENT: Present: hearing grossly normal - Neck Neck: Present: normal ROM - Respiratory Respiratory: bilateral: CTA - Cardiovascular Rhythm: regular Heart sounds: normal: S1, S2 - Gastrointestinal General gastrointestinal: Present: soft - Musculoskeletal Musculoskeletal: Present: gait normal - Psychiatric Psychiatric: Present: A&O x's 3, appropriate affect, intact judgment & insight - Additional findings Additional findings: breast exam: right breast: Breasts very full has just stopped nursing, fibroglandular tissue is prominent, there is a discrete mass at the 3 o'clock position which is firm and mobile this was biopsied via core biopsy and felt to be fat necrosis however it is definitely palpable from the surrounding tissue Right axilla: No adenopathy of concern Left breast: Breast is very foul again the patient is just stopped nursing, fibroglandular tissue is prominent, there is no dominant mass or nodule in the left breast Left axilla: No adenopathy of concern Assessment and Plan Assessment: impression: 1. Hypothyroid 2. Palpable mass right breast 3. Recently stopped breast feeding 4. Fiber glandular dense breast tissue/fibrocystic changes 5. Family history of cancer Plan: 1. Patient wishes the palpable mass to be resected 2. We will see her again in 1 month giving her milk time to dry up 3. Resection of palpable mass in the operating room CC: Shanel Cristina, [facility]
== END | disposition home or self-care (01) ==
DX: Z53.9 Procedure and treatment not carried out, unspecified reason (principal)

== ENCOUNTER → 2018-11-10 | Outpatient (CLI) | payer OTHER ==
[2018-11-10 14:49] VITALS: BP 131/85; PULSE 94; RESP 16; TEMP 98.3; BMI 20.7
--- NOTE | 2018-11-10 15:20 | P.PN ---
Subjective Progress Note Date: 11/10/18 The patient is a 27-year-old white female who is 13 months . She was nursing her baby when she noticed some fullness in her right breast. She stopped nursing September 25. She thought this was related to a clogged duct but the fullness persisted. She therefore underwent an ultrasound of the area of concern. The ultrasound revealed a 0.7 x 0.6 cm hypoechoic lesion at 2:00 and a 0.9 x 1 cm hypoechoic lesion at 2:00. This was considered BIRADS 4 and ultrasound-guided core biopsy of the right breast was recommended. The patient has not noted any pain in her breasts. She has no abnormal nipple discharge but she is nursing. She has not had anything like this before. Patient has resumed her menstrual periods. She had ultrasound core biopsy of 2 sites on 07-21-18. Both sites were benign, however the tissue obtaied was scanty. She is not totally any discharge from her nipples at this time. The area of nodularity has not gone away. Family history: 1. grandfather paternal lung Menstrual history: Menarche:15 : 3, 3 children, breast fed: yes periods: regular BCP: none hormones: injections when to maintain the Surgical history: 1. times three 2. wisdom teeth 3. tubaligation Medical History: hypothyroid Social History: smoke: none alcohol: occasional drugs: none Review of systems: HEENT: Negative Lungs: Negative Heart: Negative GI: Negative : As above Breasts: As above Musculoskeletal: Negative Objective - Vital Signs Vital signs: Vital Signs Temp 98.3 F 11/10/18 14:45 Pulse 94 11/10/18 14:45 Resp 16 11/10/18 14:45 BP 131/85 11/10/18 14:45 Pulse Ox 100 11/10/18 14:45 Intake & Output 11/09/18 11/10/18 11/10/18 18:59 06:59 18:59 Weight 54.885 kg - Exam BMI 20.8 - Constitutional General appearance: Present: average body habitus - EENT Eyes: Present: EOMI ENT: Present: hearing grossly normal - Neck Neck: Present: normal ROM - Respiratory Respiratory: bilateral: CTA - Cardiovascular Rhythm: regular Heart sounds: normal: S1, S2 - Gastrointestinal General gastrointestinal: Present: soft - Integumentary Integumentary: Present: normal turgor - Musculoskeletal Musculoskeletal: Present: gait normal - Psychiatric Psychiatric: Present: A&O x's 3, appropriate affect, intact judgment & insight - Additional findings Additional findings: Breast examination: Right breast examination again reveals at approximately 2 to 3 o'clock position of the right breast an area of firm nodularity core biopsy of this was nondiagnostic from prior breast exam no dominant mass or nodule is of concern otherwise in the right breast Right axilla: No adenopathy of concern Left breast: No dominant masses or nodules of concern, fibrocystic change had been noted Left axilla: No adenopathy of concern Assessment and Plan Assessment: Impression: 1. Hypothyroid 2. Palpable mass right breast 3. Recently stopped breast feeding 4. Fibroglandular density tissue/fibrocystic changes 6. Family history of cancer Plan: 1. Excision of palpable mass right breast 2. Medical management of medical conditions CC: [facility]
== END ==
LOC: WWCWWP 14:34
PROVIDERS: ATTEND Surgery
DX: Z53.9 Procedure and treatment not carried out, unspecified reason (principal)

== ENCOUNTER → 2020-02-04 | Outpatient (CLI) | payer MEDICAID ==
--- NOTE | 2020-02-04 10:19 | US ---
EXAMINATION TYPE: US thyroid st tissue head/neck DATE OF EXAM: 02/04/2020 COMPARISON: NONE CLINICAL HISTORY: 29-year-old female E03.1 HYPOTHYROIDISM. Patient on thyroid meds. TECHNIQUE: Multiple sonographic images of the thyroid gland are obtained. FINDINGS: GLAND SIZE: Right Lobe: 2.8 x 0.8 x 1.0 cm Overall Parenchyma: heterogenous Left Lobe: 3.5 x 0.7 x 0.8 cm Overall Parenchyma: heterogeneous Isthmus Thickness: 0.1 cm NODULES RIGHT: # of nodules measured on right: 0 LEFT: # of nodules measured on left: 0 ISTHMUS: # of nodules measured in the isthmus: 0 Bilateral neck scanned, no evidence of lymphadenopathy. IMPRESSION: Small heterogeneous thyroid gland in keeping with chronic hypothyroidism. No discrete nodules.
== END | disposition home or self-care (01) ==
LOC: RADUSWWP 09:40
PROVIDERS: ATTEND Family Medicine
DX: E03.9 Hypothyroidism, unspecified (principal); E03.1 Congenital hypothyroidism without goiter
CPT/HCPCS: 76536

== ENCOUNTER → 2021-09-24 | Outpatient (CLI) | payer BC ==
--- NOTE | 2021-09-25 07:22 | US ---
EXAMINATION TYPE: US pelvic complete DATE OF EXAM: 09/24/2021 COMPARISON: NONE CLINICAL HISTORY: N94.6 Dysmenorrhea. hx tubal ligation TECHNIQUE: Transabdominal (TA). Transabdominal sonographic images of the pelvis were acquired. Date of LMP: 09/09/2021, EXAM MEASUREMENTS: Uterus: 9.5 x 6.4 x 4.2 cm Endometrial Stripe: 0.7 cm Right Ovary: 3.3 x 2.1 x 1.5 cm Left Ovary: 3.0 x 2.2 x 2.1 cm 1. Uterus: Anteverted wnl 2. Endometrium: wnl 3. Right Ovary: follicles seen 4. Left Ovary: follicles seen 5. Bilateral Adnexa: wnl 6. Posterior cul-de-sac: no free fluid IMPRESSION: Small ovarian follicles. Otherwise unremarkable study.
== END | disposition home or self-care (01) ==
LOC: RADUSWWP 16:06
PROVIDERS: ATTEND Internal Medicine Geriatric Medicine
DX: N94.6 Dysmenorrhea, unspecified (principal)
CPT/HCPCS: 76856

== ENCOUNTER → 2022-01-15 | Outpatient (CLI) | payer BC ==
--- NOTE | 2022-01-15 12:20 | XR ---
EXAMINATION TYPE: XR lumbar spine 2 or 3V DATE OF EXAM: 01/15/2022 CLINICAL HISTORY: pain TECHNIQUE: Three views of the lumbar spine are submitted. COMPARISON: None. FINDINGS: There are 5 lumbar type vertebral bodies identified. The lumbar spine shows satisfactory alignment w ithout evidence of acute fracture or dislocation. Vertebral body heights are within normal limits. Disc spaces are within normal limits. The overlying soft tissue appears unremarkable. IMPRESSION: No acute fracture or dislocation is seen in the lumbar spine. ICD 10 NO FRACTURE, INITIAL EVALUATION
== END | disposition home or self-care (01) ==
LOC: RADXRMAIN 10:40
PROVIDERS: ATTEND Nurse Practitioner Family
DX: M54.9 Dorsalgia, unspecified (principal)
CPT/HCPCS: 72100

== ENCOUNTER 2023-12-22 08:30 | Emergency (ER) | payer BC ==
[2023-12-22 08:40] VITALS: TEMP 98
--- NOTE | 2023-12-22 08:55 | ED ---
General Adult HPI - General Chief complaint: Abdominal Pain Stated complaint: abd pain/weight loss Time Seen by Provider: 12/22/23 08:40 Source: patient, RN notes reviewed, old records reviewed Mode of arrival: ambulatory Limitations: no limitations - History of Present Illness Initial comments: This is a 33-year-old female who presents to the emergency department stating that she has had abdominal pain for little over a month. Patient states anytime she eats or drinks anything except for broth she gets extreme abdominal pain and its to the point where she is lost 15 pounds in the last month. Patient seen her primary medical care doctor and they did some blood work that was all normal. Patient states the pain continues she she does not know what to do. Patient denies any fever chills. Patient has back pain patient has dysuria hematuria urinary frequency. - Related Data Home Medications Medication Instructions Recorded Confirmed Famotidine [Pepcid] 20 mg PO HS PRN 12/22/23 12/22/23 Levothyroxine Sodium [Synthroid] 125 mcg PO DAILY 12/22/23 12/22/23 Omeprazole [PriLOSEC] 20 mg PO DAILY 12/22/23 12/22/23 Allergies Allergy/AdvReac Type Severity Reaction Status Date / Time No Known Allergies Allergy Verified 12/22/23 12:18 Review of Systems ROS Statement: Those systems with pertinent positive or pertinent negative responses have been documented in the HPI. ROS Other: All systems not noted in ROS Statement are negative. Past Medical History Past Medical History: Thyroid Disorder Additional Past Medical History / Comment(s): History of delivery. Hx of migraine headaches History of Any Multi-Drug Resistant Organisms: None Reported Past Surgical History: Section, Tubal Ligation Additional Past Surgical History / Comment(s): section x3; wisdom tooth extraction x4 Past Anesthesia/Blood Transfusion Reactions: No Reported Reaction Past Psychological History: No Psychological Hx Reported Smoking Status: Never smoker Past Alcohol Use History: Occasional Past Drug Use History: None Reported - Past Family History Brother(s) Additional Family Medical History / Comment(s): open heart surgery as a baby Sister(s) Additional Family Medical History / Comment(s): narcolepsy Father Family Medical History: No Reported History Mother Family Medical History: No Reported History General Exam - General Exam Comments Initial Comments: GENERAL: Patient is well-developed and well-nourished. Patient is nontoxic and well- hydrated and is in mild distress. ENT: Neck is soft and supple. No significant lymphadenopathy is noted. Oropharynx is clear. Moist mucous membranes. Neck has full range of motion without eliciting any pain. EYES: The sclera were anicteric and conjunctiva were pink and moist. Extraocular movements were intact and pupils were equal round and reactive to light. Eyelids were unremarkable. PULMONARY: Unlabored respirations. Good breath sounds bilaterally. No audible rales rhonchi or wheezing was noted. CARDIOVASCULAR: There is a regular rate and rhythm without any murmurs gallops or rubs. ABDOMEN: Patient has right upper quadrant and epigastric abdominal pain on palpation SKIN: Skin is clear with no lesions or rashes and otherwise unremarkable. NEUROLOGIC: Patient is alert and oriented x3. Cranial nerves II through XII are grossly intact. Motor and sensory are also intact. Normal speech, volume and content. Symmetrical smile. MUSCULOSKELETAL: Normal extremities with adequate strength and full range of motion. LYMPHATICS: No significant lymphadenopathy is noted PSYCHIATRIC: Normal psychiatric evaluation. Limitations: no limitations Course Vital Signs 12/22/23 12/22/23 08:37 13:34 Temperature 98.0 F Pulse Rate 89 82 Respiratory 18 Rate Blood Pressure 121/85 107/85 O2 Sat by Pulse 100 99 Oximetry Medical Decision Making - Medical Decision Making Was pt. sent in by a medical professional or institution ([facility], [employer], urgent care, hospital, or custodial...) When possible be specific @ -No Did you speak to anyone other than the patient for history (EMS, parent, family, police, friend...)? What history was obtained from this source @ -No Did you review nursing and triage notes (agree or disagree)? Why? @ -I reviewed and agree with nursing and triage notes Were old charts reviewed (outside hosp., previous admission, EMS record, old EKG, old radiological studies, urgent care reports/EKG's, custodial records)? Report findings @ -No old charts were reviewed Differential Diagnosis? @ -Differential Abdominal Pain Women: Appendicitis, Cholecystitis, diverticulosis, ischemic bowel, pancreatitis, hepatitis, UTI, gastroenteritis, AAA, incarcerated hernia, bowel obstruction, constipation, inflammatory bowel, hepatitis, peptic ulcer disease, splenic infarction, perforated viscus, vulvitis, ovarian torsion, PID, kidney stone, placenta abruption, this is not meant to be an all-inclusive list EKG interpreted by me (3pts min.). @ -As above X-rays interpreted by me (1pt min.). @ -None done CT interpreted by me (1pt min.). @ -CT of the abdomen pelvis shows 2 large cyst in the ovary U/S interpreted by me (1pt. min.). @ -Gallbladder ultrasound shows no acute abnormality What testing was considered but not performed or refused? (CT, X-rays, U/S, labs)? Why? @ -None What meds were considered but not given or refused? Why? @ -None Did you discuss the management of the patient with other professionals (professionals i.e. , PA, [employer], lab, RT, psych nurse, professor of social work, program director [employer], teacher, navigation officer, employment evaluator/case manager)? Give summary @ -No Was smoking cessation discussed for >3mins.? @ -No Was critical care preformed (if so, how long)? @ -No Were there social determinants of health that impacted care today? How? (Homelessness, low income, unemployed, alcoholism, drug addiction, transportation, low edu. Level, literacy, decrease access to med. care, halfway, rehab)? @ -No Was there de-escalation of care discussed even if they declined (Discuss DNR or withdrawal of care, Hospice)? DNR status @ -No What co-morbidities impacted this encounter? (DM, HTN, Smoking, COPD, CAD, Cancer, CVA, ARF, Chemo, Hep., AIDS, mental health diagnosis, sleep apnea, morbid obesity)? @ -None Was patient admitted / discharged? Hospital course, mention meds given and route, prescriptions, significant lab abnormalities, going to OR and other pertinent info. @ -Patient was given pain meds fluids and Zofran in the emergency department was feeling considerably better. CT ultrasound did not show any acute issue that would explain her pain. Patient does have large cysts on the right adnexal region Undiagnosed new problem with uncertain prognosis? @ -No Drug Therapy requiring intensive monitoring for toxicity (Heparin, Nitro, Insulin, Cardizem)? @ -No Were any procedures done? @ -No Diagnosis/symptom? @ -Ovarian cyst Acute, or Chronic, or Acute on Chronic? @ -Acute Uncomplicated (without systemic symptoms) or Complicated (systemic symptoms)? @ -Uncomplicated Side effects of treatment? @ -No Exacerbation, Progression, or Severe Exacerbation? @ -No Poses a threat to life or bodily function? How? (Chest pain, [place], [place], pneumonia, PE, COPD, DKA, ARF, appy, cholecystitis, CVA, Diverticulitis, Homicidal, Suicidal, threat to staff... and all critical care pts) @ -No Diagnosis/symptom? @ -Abdominal pain epigastric Acute, or Chronic, or Acute on Chronic? @ -Acute Uncomplicated (without systemic symptoms) or Complicated (systemic symptoms)? @ -Complicated Side effects of treatment? @ -None Exacerbation, Progression, or Severe Exacerbation] @ -No Poses a threat to life or bodily function? @ -No - Lab Data Result diagrams: 12/22/23 09:41 12/22/23 09:41 Lab Results 12/22/23 12/22/23 12/22/23 Range/Units 09:41 09:41 09:41 WBC 5.4 (3.8-10.6) k/uL RBC 4.23 (3.80-5.40) m/uL Hgb 13.7 (11.4-16.0) gm/dL Hct 38.4 (34.0-46.0) % MCV 90.8 (80.0-100.0) fL MCH 32.5 (25.0-35.0) pg MCHC 35.7 (31.0-37.0) g/dL RDW 13.1 (11.5-15.5) % Plt Count 269 (150-450) k/uL MPV 7.3 Neutrophils % 72 % Lymphocytes % 20 % Monocytes % 4 % Eosinophils % 2 % Basophils % 1 % Neutrophils # 3.9 (1.3-7.7) k/uL Lymphocytes # 1.1 (1.0-4.8) k/uL Monocytes # 0.2 (0-1.0) k/uL Eosinophils # 0.1 (0-0.7) k/uL Basophils # 0.0 (0-0.2) k/uL Hyperchromasia Slight Poikilocytosis Slight Sodium 140 (137-145) mmol/L Potassium 4.0 (3.5-5.1) mmol/L Chloride 106 (98-107) mmol/L Carbon Dioxide 26 (22-30) mmol/L Anion Gap 8 mmol/L BUN 11 (7-17) mg/dL Creatinine 0.88 (0.52-1.04) mg/dL Est GFR (CKD-EPI)AfAm >90 (>60 ml/min/1.73 sqM) Est GFR (CKD-EPI)NonAf 87 (>60 ml/min/1.73 sqM) Glucose 94 (74-99) mg/dL Plasma Lactic Acid [place] 0.6 L (0.7-2.0) mmol/L Calcium 9.4 (8.4-10.2) mg/dL Magnesium 1.9 (1.6-2.3) mg/dL Total Bilirubin 0.9 (0.2-1.3) mg/dL AST 19 (14-36) U/L ALT 12 (4-34) U/L Alkaline Phosphatase 41 (38-126) U/L Total Protein 6.8 (6.3-8.2) g/dL Albumin 4.3 (3.5-5.0) g/dL Amylase 56 (30-110) U/L Lipase 91 (23-300) U/L HCG, Quant <2.4 mIU/mL Disposition Clinical Impression: Abdominal pain, Ovarian cyst Disposition: HOME SELF-CARE Condition: Good Instructions (If sedation given, give patient instructions): Abdominal Pain (ED) Is patient prescribed a controlled substance at d/c from ED?: No Referrals: Farheen Lui NPC [Nurse Practitioner] - 1-2 days Time of Disposition: 13:45
[2023-12-22] MEDS: ONDANSETRON 4 MG/2 ML VIAL IVP STA (09:41)
[2023-12-22] MEDS: HYDROmorphone 0.5 MG/0.5 ML SYRINGE IVP STA (09:41)
--- NOTE | 2023-12-22 09:41 | US ---
EXAMINATION TYPE: US gallbladder DATE OF EXAM: 12/22/2023 COMPARISON: NONE CLINICAL INDICATION: Female, 33 years old with history of Right upper quadrant and epigastric abdomin al pain; RUQ pain x 1 month TECHNIQUE: Grayscale and color Doppler imaging of the right upper quadrant was performed. 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 [facility], , 12/22/2023 9:38 AM
[2023-12-22] MEDS: SODIUM CHLORIDE 0.9% 1,000 ML IV STA (09:42)
[2023-12-22 09:57] LABS: Basophils % (A) 1 %; Eosinophils # (A) 0.1 k/uL (0-0.7); Eosinophils % (A) 2 %; HCT 38.4 % (34.0-46.0); HGB 13.7 gm/dL (11.4-16.0); Hyperchromasia Slight; Lymphocytes # (A) 1.1 k/uL (1.0-4.8); Lymphocytes % (A) 20 %; MCH 32.5 pg (25.0-35.0); MCHC 35.7 g/dL (31.0-37.0); MCV 90.8 fL (80.0-100.0); Mean Platelet Volume 7.3; Monocytes # (A) 0.2 k/uL (0-1.0); Monocytes % (A) 4 %; Neutrophils # (A) 3.9 k/uL (1.3-7.7); Neutrophils % (A) 72 %; Platelet Count 269 k/uL (150-450); Poikilocytosis Slight; RBC 4.23 m/uL (3.80-5.40); RDW 13.1 % (11.5-15.5); WBC 5.4 k/uL (3.8-10.6)
[2023-12-22 10:39] LABS: ALT 12 U/L (4-34); AST 19 U/L (14-36); African American GFR (CKD) >90 (>60 ml/min/1.73 sqM); Albumin 4.3 g/dL (3.5-5.0); Alkaline Phosphatase 41 U/L (38-126); Amylase 56 U/L (30-110); Anion Gap 8 mmol/L; Blood Urea Nitrogen 11 mg/dL (7-17); Calcium 9.4 mg/dL (8.4-10.2); Carbon Dioxide 26 mmol/L (22-30); Chloride 106 mmol/L (98-107); Glucose 94 mg/dL (74-99); Lipase 91 U/L (23-300); Magnesium 1.9 mg/dL (1.6-2.3); Non-African American GFR(CKD) 87 (>60 ml/min/1.73 sqM); Sodium 140 mmol/L (137-145); Total Bilirubin 0.9 mg/dL (0.2-1.3); Total Protein 6.8 g/dL (6.3-8.2)
--- NOTE | 2023-12-22 11:13 | CT ---
EXAMINATION TYPE: CT abdomen pelvis w con DATE OF EXAM: 12/22/2023 COMPARISON: None HISTORY: Abdominal pain CT DLP: 411.4 mGycm Automated exposure control for dose reduction was used. TECHNIQUE: Helical acquisition of images was performed from the lung bases through the pelvis. CONTRAST: Performed without Oral Contrast and with IV Contrast, patient injected with 100 ml mL of Isovue 300. The lung bases are clear. The gallbladder is normal without distention, wall thickening, pericholecystic fluid or gallstones. T here is no biliary ductal dilatation. There is no focal mass or organomegaly involving the liver, pancreas, spleen or adrenal glands. There is no solid renal mass or hydronephrosis and there is homogeneous contrast enhancement of the r enal parenchyma. The caliber the abdominal aorta is normal is no retroperitoneal adenopathy or hemorr shreya. The bowel loops are normal in caliber and there is no evidence of dilatation or obstruction. No infla mmatory changes are identified in the bowel wall or mesentery. There is no free intraperitoneal air or fluid. There are 2 approximately 3 cm cystic mass is in the right adnexa. Pelvic ultrasound would be useful for further evaluation. The osseous structures and soft tissues are intact. IMPRESSION: 2 approximately 3 cm cystic masses in the right adnexa. Further evaluation with pelvic ultrasound is recommended. [facility], Workstation: [email or web address] 12/22/2023 11:11 AM
[2023-12-22 11:20] LABS: HCG,Quantitative Serum <2.4 mIU/mL
--- NOTE | 2023-12-22 14:56 | US ---
EXAMINATION TYPE: US pelvic complete DATE OF EXAM: 12/22/2023 COMPARISON: CT: Today CLINICAL INDICATION: Female, 33 years old with history of abd pain; no pelvic pain. . 3 s. Tubal ligation TECHNIQUE: . Transabdominal grayscale, color Doppler and spectral Doppler sonographic images of the pelvis were acquired. FINDINGS: Date of LMP: 12/18/23 EXAM MEASUREMENTS: Uterus: 8.7 x 6.4 x 4.4 cm Endometrial Stripe: 0.59 cm Right Ovary: 5.1 x 2.4 x 2.3 cm Left Ovary: 2.8 x 2.3 x 1.5 cm 1. Uterus: Anteverted wnl 2. Endometrium: fluid seen inside 3. Right Ovary: cystic area seen measuring 3.0 x 2.8 x 2.5cm 4. Left Ovary: wnl Spectral, color and waveform doppler imaging shows good arterial and venous flow within the ovaries ; there is no evidence for ovarian torsion. 5. Bilateral Adnexa: wnl 6. Posterior cul-de-sac: fluid seen in cul de sac IMPRESSION: 1. No evidence for acute process. 2. Right ovarian dominant cyst measuring up to 3 cm. [facility], , 12/22/2023 1:32 PM
[2023-12-22] MEDS ORDERED: ONDANSETRON 4 MG ODT STARTER PACK 2 TAB BTL PO STA (14:59)
[2023-12-22 16:11] VITALS: BP 110/84; PULSE 78; RESP 16
== END 2023-12-22 15:10 | disposition home or self-care (01) ==
LOC: EC 08:30
DX: N83.201 Unspecified ovarian cyst, right side (principal)
CPT/HCPCS: 36415; 74177; 76705; 76856; 80053; 82150; 83605; 83690; 83735; 84702; 85025; 93975; 96361; 96374; 96375; 99284

== ENCOUNTER → 2024-01-03 | Outpatient (CLI) | payer BC ==
--- NOTE | 2024-01-03 09:40 | NM ---
EXAMINATION TYPE: NM hepatobiliary w EF DATE OF EXAM: 01/03/2024 COMPARISON: Ultrasound 12/22/2023 CLINICAL INDICATION: Female, 33 years old with history of R11.2 nausea with vomiting; TECHNIQUE: After the intravenous administration of 5.09 mCi Tc 99m Mebrofenin hepatobiliary scintigra phy is performed. Immediate images post injection. FINDINGS: There is satisfactory initial accumulation of tracer by the liver. The gallbladder is visualized wit hin 10 minutes. The small bowel activity is noted within 36 minutes. At one hour 8 ounces of oral e nsure plus is given to mimic CCK and gallbladder ejection fraction is calculated at 76 %, upper limit s of the normal range. IMPRESSION: No scintigraphic evidence for acute/chronic cholecystitis or biliary dyskinesia. [facility], , 01/03/2024 9:38 AM
== END | disposition home or self-care (01) ==
LOC: RADNMMAIN 06:51
PROVIDERS: ATTEND Internal Medicine Geriatric Medicine
DX: R11.2 Nausea with vomiting, unspecified (principal)
CPT/HCPCS: 78226

== ENCOUNTER 2024-01-27 13:31 | Emergency (ER) | payer BC ==
--- NOTE | 2024-01-27 13:44 | ED ---
Abdominal Pain HPI - General Source: patient, RN notes reviewed Mode of arrival: ambulatory Limitations: no limitations - History of Present Illness MD Complaint: abdominal pain <Najma Conklin - Last Filed: 01/27/24 13:42> - General Source: patient, RN notes reviewed Mode of arrival: ambulatory Limitations: no limitations - History of Present Illness MD Complaint: abdominal pain Onset/Timin -: week(s) Location: periumbilical, epigastric Radiation: none Migration to: no migration Severity scale (1-10): 8 Quality: cramping, stabbing Consistency: intermittent Associated Symptoms: nausea <Kin Ambrose - Last Filed: 01/29/24 22:54> <Denis Perkins - Last Filed: 02/03/24 10:27> - General Chief Complaint: Abdominal Pain Stated Complaint: Abd pain Time Seen by Provider: 01/27/24 13:35 - History of Present Illness Initial Comments: Quick Note: This is a 33-year-old female who presents to the emergency department for abdominal pain. Reports epigastric pain that has been going on for 8 to 10 weeks. States that she has been seen for this and no cause has been identified. Today the pain became worse and she was nauseous, prompting her to come to the emergency department. (Najma Conklin) This is a 33-year-old female with history of GERD presenting with nausea and abdominal pain (10/14) x 10 weeks. Patient endorses belly feeling like "heavy rocks". Describes pain as intermittent pressure/stabbing with associated weakness. Patient endorses undergoing an EGD for her current symptoms and is currently seeing Dr. Castro for suspected gastroparesis and hypothyroidism. Patient denies fever, chills, chest pain, dyspnea, vomiting, diarrhea, con stipation, dizziness. (Kin Ambrose) - Related Data Home Medications Medication Instructions Recorded Confirmed Famotidine [Pepcid] 20 mg PO HS PRN 12/22/23 12/22/23 Levothyroxine Sodium [Synthroid] 125 mcg PO DAILY 12/22/23 12/22/23 Omeprazole [PriLOSEC] 20 mg PO DAILY 12/22/23 12/22/23 Previous Rx's Medication Instructions Recorded Ondansetron [Zofran] 4 mg PO Q8HR PRN #20 tab 11/22/24 Allergies Allergy/AdvReac Type Severity Reaction Status Date / Time No Known Allergies Allergy Verified 01/27/24 14:40 Review of Systems ROS Other: All systems not noted in ROS Statement are negative. <Najma Conklin - Last Filed: 01/27/24 13:42> ROS Other: All systems not noted in ROS Statement are negative. <Kin Ambrose - Last Filed: 01/29/24 22:54> ROS Other: All systems not noted in ROS Statement are negative. <Denis Perkins - Last Filed: 02/03/24 10:27> ROS Statement: Those systems with pertinent positive or pertinent negative responses have been documented in the HPI. Past Medical History Past Medical History: Thyroid Disorder Additional Past Medical History / Comment(s): History of delivery. Hx of migraine headaches History of Any Multi-Drug Resistant Organisms: None Reported Past Surgical History: Section, Tubal Ligation Additional Past Surgical History / Comment(s): section x3; wisdom tooth extraction x4 Past Anesthesia/Blood Transfusion Reactions: No Reported Reaction Past Psychological History: No Psychological Hx Reported Smoking Status: Never smoker Past Alcohol Use History: Occasional Past Drug Use History: None Reported - Past Family History Brother(s) Additional Family Medical History / Comment(s): open heart surgery as a baby Sister(s) Additional Family Medical History / Comment(s): narcolepsy Father Family Medical History: No Reported History Mother Family Medical History: No Reported History <Najma Conklin - Last Filed: 01/27/24 13:42> General Exam <Najma Conklin - Last Filed: 01/27/24 13:42> General appearance: alert, in no apparent distress Head exam: Present: atraumatic, normocephalic, normal inspection Eye exam: Present: normal appearance, PERRL, EOMI. Absent: scleral icterus, conjunctival injection, periorbital swelling ENT exam: Present: normal exam, mucous membranes moist Neck exam: Present: normal inspection. Absent: tenderness, meningismus, lymphadenopathy Respiratory exam: Present: normal lung sounds bilaterally. Absent: respiratory distress, wheezes, rales, rhonchi, stridor Cardiovascular Exam: Present: regular rate, normal rhythm, normal heart sounds. Absent: systolic murmur, diastolic murmur, rubs, gallop, clicks GI/Abdominal exam: Present: soft, tenderness (Positive epigastric and umbilical tenderness and tympanic tenderness.), normal bowel sounds. Absent: distended, guarding, rebound, rigid Extremities exam: Present: normal inspection, full ROM, normal capillary refill. Absent: tenderness, pedal edema, joint swelling, calf tenderness Back exam: Present: normal inspection Neurological exam: Present: alert, oriented X3, CN II-XII intact Psychiatric exam: Present: normal affect, normal mood Skin exam: Present: warm, dry, intact, normal color. Absent: rash <Kin Ambrose - Last Filed: 01/29/24 22:54> - General Exam Comments Initial Comments: Visual Physical Exam Vital signs reviewed General: Well-appearing, nontoxic, no acute distress. Head: Normocephalic, atraumatic Eyes: PERRLA, EOMI ENT: Airway patent Chest: Nonlabored breathing Skin: No visual rash, normal skin tone Neuro: Alert and oriented 3 Musculoskeletal: No gross abnormalities (Najma Conklin) Course Vital Signs 01/27/24 01/27/24 14:40 18:59 Temperature 977 F H Pulse Rate 86 84 Respiratory 18 18 Rate Blood Pressure 117/83 119/74 O2 Sat by Pulse 98 99 Oximetry Medical Decision Making <Njama Conklin - Last Filed: 01/27/24 13:42> - Lab Data Result diagrams: 01/27/24 14:56 01/27/24 14:56 <Kin Ambrose - Last Filed: 01/29/24 22:54> - Lab Data Result diagrams: 01/27/24 14:56 01/27/24 14:56 <Denis Perkins - Last Filed: 02/03/24 10:27> - Medical Decision Making I performed the QuickNote portion of this chart. Signed Najma Conklin PA-C. (Najma Conklin) Was pt. sent in by a medical professional or institution ([facility], [employer], urgent care, hospital, or correction...) When possible be specific @ -No Did you speak to anyone other than the patient for history (EMS, parent, family, police, friend...)? What history was obtained from this source @ -No Did you review nursing and triage notes (agree or disagree)? Why? @ -I reviewed and agree with nursing and triage notes Were old charts reviewed (outside hosp., previous admission, EMS record, old EKG, old radiological studies, urgent care reports/EKG's, correction records)? Report findings @ -No old charts were reviewed Differential Diagnosis (chest pain, altered mental status, abdominal pain women, abdominal pain men, vaginal bleeding, weakness, fever, dyspnea, syncope, headache, dizziness, GI bleed, back pain, seizure, CVA, palpatations, mental health, musculoskeletal)? @ -Differential Abdominal Pain Women: Appendicitis, Cholecystitis, diverticulosis, ischemic bowel, pancreatitis, hepatitis, UTI, gastroenteritis, AAA, incarcerated hernia, bowel obstruction, constipation, inflammatory bowel, hepatitis, peptic ulcer disease, splenic infarction, perforated viscus, vulvitis, ovarian torsion, PID, kidney stone, placenta abruption, this is not meant to be an all-inclusive list EKG interpreted by me (3pts min.). @ -Not done X-rays interpreted by me (1pt min.). @ -None done CT interpreted by me (1pt min.). @ -None done U/S interpreted by me (1pt. min.). @ -None done What testing was considered but not performed or refused? (CT, X-rays, U/S, labs)? Why? @ -CT scan considered but abdominal pelvic CT scan regarding same symptoms are performed 1 month ago with only abnormal finding being a right ovarian cyst. Due to unremarkable labs, CT scan considered but ultimately not performed. What meds were considered but not given or refused? Why? @ -None Did you discuss the management of the patient with other professionals (professionals i.e. , PA, [employer] GR[employer]ATOR [employer], lab, RT, psych nurse, medical social worker, gas pit worker, teacher, quarantine officer, caseworker protective services)? Give summary @ -No Was smoking cessation discussed for >3mins.? @ -No Was critical care preformed (if so, how long)? @ -No Were there social determinants of health that impacted care today? How? (Homelessness, low income, unemployed, alcoholism, drug addiction, transportation, low edu. Level, literacy, decrease access to med. care, [facility], rehab)? @ -No Was there de-escalation of care discussed even if they declined (Discuss DNR or withdrawal of care, Hospice)? DNR status @ -No What co-morbidities impacted this encounter? (DM, HTN, Smoking, COPD, CAD, Cancer, CVA, ARF, Chemo, Hep., AIDS, mental health diagnosis, sleep apnea, morbid obesity)? @ -None Was patient admitted / discharged? Hospital course, mention meds given and route, prescriptions, significant lab abnormalities, going to OR and other pertinent info. @ -Basic lab work including lactic acid and UA are completely unremarkable. Abdomen/pelvic CT for current symptoms performed about 1 month ago with only finding being a right ovarian cyst. Repeat CT for same symptoms considered but ultimately deferred due to normal lab work. Patient provided IV normal saline, Pepcid, Protonix, Zofran and Dilaudid along with p.o. and Magic mouthwash with noted pain relief. Advised follow-up with bunk assembler for ongoing care/treatment. Advised brat diet and gab tea/[place] for GI symptoms Undiagnosed new problem with uncertain prognosis? @ -No Drug Therapy requiring intensive monitoring for toxicity (Heparin, Nitro, Insulin, Cardizem)? @ -No Were any procedures done? @ -No Diagnosis/symptom? @ -Gastritis Acute, or Chronic, or Acute on Chronic? @ -Acute Uncomplicated (without systemic symptoms) or Complicated (systemic symptoms)? @ -Complicated Side effects of treatment? @ -No Exacerbation, Progression, or Severe Exacerbation? @ -Progression Poses a threat to life or bodily function? How? (Chest pain, [place], [place], pneumonia, PE, COPD, DKA, ARF, appy, cholecystitis, CVA, Diverticulitis, Homicidal, Suicidal, threat to staff... and all critical care pts) @ -No (Kin Ambrose) - Lab Data Lab Results 01/27/24 01/27/24 01/27/24 Range/Units 14:56 14:56 14:56 WBC 6.4 (3.8-10.6) k/uL RBC 4.60 (3.80-5.40) m/uL Hgb 14.7 (11.4-16.0) gm/dL Hct 42.4 (34.0-46.0) % MCV 92.3 (80.0-100.0) fL MCH 31.9 (25.0-35.0) pg MCHC 34.6 (31.0-37.0) g/dL RDW 12.7 (11.5-15.5) % Plt Count 279 (150-450) k/uL MPV 6.6 Neutrophils % 60 % Lymphocytes % 31 % Monocytes % 5 % Eosinophils % 1 % Basophils % 1 % Neutrophils # 3.8 (1.3-7.7) k/uL Lymphocytes # 2.0 (1.0-4.8) k/uL Monocytes # 0.4 (0-1.0) k/uL Eosinophils # 0.1 (0-0.7) k/uL Basophils # 0.1 (0-0.2) k/uL Sodium (137-145) mmol/L Potassium (3.5-5.1) mmol/L Chloride (98-107) mmol/L Carbon Dioxide (22-30) mmol/L Anion Gap mmol/L BUN (7-17) mg/dL Creatinine (0.52-1.04) mg/dL Est GFR (CKD-EPI)AfAm (>60 ml/min/1.73 sqM) Est GFR (CKD-EPI)NonAf (>60 ml/min/1.73 sqM) Glucose (74-99) mg/dL Plasma Lactic Acid [place] (0.7-2.0) mmol/L Calcium (8.4-10.2) mg/dL Total Bilirubin (0.2-1.3) mg/dL AST (14-36) U/L ALT (4-34) U/L Alkaline Phosphatase (38-126) U/L Total Protein (6.3-8.2) g/dL Albumin (3.5-5.0) g/dL Amylase (30-110) U/L Lipase (23-300) U/L Urine Color Colorless Urine Appearance Clear (Clear) Urine pH 7.0 (5.0-8.0) Ur Specific [place] 1.011 (1.001-1.035) Urine Protein Negative (Negative) Urine Glucose (UA) Negative (Negative) Urine Ketones Negative (Negative) Urine Blood Small H (Negative) Urine Nitrite Negative (Negative) Urine Bilirubin Negative (Negative) Urine Urobilinogen <2.0 (<2.0) mg/dL Ur Leukocyte Esterase Negative (Negative) Urine RBC 1 (0-5) /hpf Urine WBC 3 (0-5) /hpf Ur Squamous Epith Cells 1 (0-4) /hpf Urine Bacteria Many H (None) /hpf Urine Mucus Rare H (None) /hpf Urine HCG, Qual Not Detected (Not Detectd) 01/27/24 01/27/24 Range/Units 14:56 14:56 WBC (3.8-10.6) k/uL RBC (3.80-5.40) m/uL Hgb (11.4-16.0) gm/dL Hct (34.0-46.0) % MCV (80.0-100.0) fL MCH (25.0-35.0) pg MCHC (31.0-37.0) g/dL RDW (11.5-15.5) % Plt Count (150-450) k/uL MPV Neutrophils % % Lymphocytes % % Monocytes % % Eosinophils % % Basophils % % Neutrophils # (1.3-7.7) k/uL Lymphocytes # (1.0-4.8) k/uL Monocytes # (0-1.0) k/uL Eosinophils # (0-0.7) k/uL Basophils # (0-0.2) k/uL Sodium 139 (137-145) mmol/L Potassium 4.3 (3.5-5.1) mmol/L Chloride 105 (98-107) mmol/L Carbon Dioxide 26 (22-30) mmol/L Anion Gap 8 mmol/L BUN 12 (7-17) mg/dL Creatinine 0.84 (0.52-1.04) mg/dL Est GFR (CKD-EPI)AfAm >90 (>60 ml/min/1.73 sqM) Est GFR (CKD-EPI)NonAf >90 (>60 ml/min/1.73 sqM) Glucose 84 (74-99) mg/dL Plasma Lactic Acid [place] 0.8 (0.7-2.0) mmol/L Calcium 9.4 (8.4-10.2) mg/dL Total Bilirubin 0.8 (0.2-1.3) mg/dL AST 20 (14-36) U/L ALT 17 (4-34) U/L Alkaline Phosphatase 56 (38-126) U/L Total Protein 7.8 (6.3-8.2) g/dL Albumin 5.0 (3.5-5.0) g/dL Amylase 60 (30-110) U/L Lipase 113 (23-300) U/L Urine Color Urine Appearance (Clear) Urine pH (5.0-8.0) Ur Specific [place] (1.001-1.035) Urine Protein (Negative) Urine Glucose (UA) (Negative) Urine Ketones (Negative) Urine Blood (Negative) Urine Nitrite (Negative) Urine Bilirubin (Negative) Urine Urobilinogen (<2.0) mg/dL Ur Leukocyte Esterase (Negative) Urine RBC (0-5) /hpf Urine WBC (0-5) /hpf Ur Squamous Epith Cells (0-4) /hpf Urine Bacteria (None) /hpf Urine Mucus (None) /hpf Urine HCG, Qual (Not Detectd) Disposition <Najma Conklin - Last Filed: 01/27/24 13:42> Is patient prescribed a controlled substance at d/c from ED?: No Time of Disposition: 18:41 <Kin Ambrose - Last Filed: 01/29/24 22:54> Is patient prescribed a controlled substance at d/c from ED?: No <Denis Perkins - Last Filed: 02/03/24 10:27> Clinical Impression: Gastritis Disposition: HOME SELF-CARE Condition: Good Additional Instructions: Follow-up with gastroenterology, preferably sometime next week. Brat diet and currently prescribed antacids for pain control. Return to ER if pain worsens or becomes uncontrollable Prescriptions: Ondansetron [Zofran] 4 mg PO Q8HR PRN #20 tab PRN Reason: Nausea Referrals: Juan Jose Herbert MD [Primary Care Provider] - 1-2 days Gisele Solorio MD [STAFF PHYSICIAN] - 1-2 days
[2024-01-27 14:43] VITALS: RESP 18; TEMP 977
[2024-01-27 15:36] LABS: Basophils # (A) 0.1 k/uL (0-0.2); Basophils % (A) 1 %; Eosinophils # (A) 0.1 k/uL (0-0.7); Eosinophils % (A) 1 %; HCT 42.4 % (34.0-46.0); HGB 14.7 gm/dL (11.4-16.0); Lymphocytes % (A) 31 %; MCH 31.9 pg (25.0-35.0); MCHC 34.6 g/dL (31.0-37.0); MCV 92.3 fL (80.0-100.0); Mean Platelet Volume 6.6; Monocytes # (A) 0.4 k/uL (0-1.0); Monocytes % (A) 5 %; Neutrophils # (A) 3.8 k/uL (1.3-7.7); Neutrophils % (A) 60 %; Platelet Count 279 k/uL (150-450); RDW 12.7 % (11.5-15.5); WBC 6.4 k/uL (3.8-10.6)
[2024-01-27 15:45] LABS: ALT 17 U/L (4-34); AST 20 U/L (14-36); African American GFR (CKD) >90 (>60 ml/min/1.73 sqM); Alkaline Phosphatase 56 U/L (38-126); Amylase 60 U/L (30-110); Anion Gap 8 mmol/L; Blood Urea Nitrogen 12 mg/dL (7-17); Calcium 9.4 mg/dL (8.4-10.2); Carbon Dioxide 26 mmol/L (22-30); Chloride 105 mmol/L (98-107); Glucose 84 mg/dL (74-99); Lipase 113 U/L (23-300); Non-African American GFR(CKD) >90 (>60 ml/min/1.73 sqM); Potassium 4.3 mmol/L (3.5-5.1); Sodium 139 mmol/L (137-145); Total Bilirubin 0.8 mg/dL (0.2-1.3); Total Protein 7.8 g/dL (6.3-8.2)
[2024-01-27 16:07] LABS: Appearance,Urine Clear (Clear); Bacteria,Urine Many /hpf; Bilirubin,Urine Negative (Negative); Blood,Urine Small (Negative); Color,Urine Colorless; Glucose,Urine (UA) Negative (Negative); Ketones,Urine Negative (Negative); Leukocyte Esterase,Urine Negative (Negative); Mucus,Urine Rare /hpf; Nitrite,Urine Negative (Negative); Protein,Urine Negative (Negative); RBC,Urine 1 /hpf (0-5); Specific Gravity,Urine 1.011 (1.001-1.035); Squamous Epithelial Cell,Urine 1 /hpf (0-4); Urobilinogen,Urine <2.0 mg/dL (<2.0); WBC,Urine 3 /hpf (0-5)
[2024-01-27] MEDS ORDERED: SODIUM CHLORIDE 0.9% 1,000 ML IV STA (17:05)
[2024-01-27] MEDS: HYDROmorphone 0.5 MG/0.5 ML SYRINGE IVP STA (18:14)
[2024-01-27] MEDS: FAMOTIDINE 20 MG/2 ML VIAL IV STA (18:15)
[2024-01-27] MEDS: ONDANSETRON 4 MG/2 ML VIAL IVP STA (18:16)
[2024-01-27] MEDS: PANTOPRAZOLE 40 MG/10 ML VIAL IVP STA (18:18)
[2024-01-27] MEDS ORDERED: ONDANSETRON 4 MG ODT STARTER PACK 2 TAB BTL PO STA (18:39)
[2024-01-27 19:00] VITALS: BP 119/74; PULSE 84
[2024-01-27] MEDS ORDERED: [UNRECOGNIZED DRUG - OTHER] PO SCH (22:00)
[2024-01-27] MEDS ORDERED: MAG HYDROX PO SCH (22:00)
[2024-01-27] MEDS ORDERED: SIMETH PO SCH (22:00)
[2024-01-27] MEDS ORDERED: LIDOCAINE VISCOUS PO SCH (22:00)
[2024-01-27] MEDS ORDERED: AL HYDROX PO SCH (22:00)
== END 2024-01-27 19:07 | disposition home or self-care (01) ==
LOC: EC 13:31
DX: K29.70 Gastritis, unspecified, without bleeding (principal)
CPT/HCPCS: 36415; 80053; 82150; 83605; 83690; 85025; 81001; 81025; 99284; 96374; 96375 ×3; J2405; J3490; J1171; J2470

== ENCOUNTER 2024-07-04 09:31 | Emergency (ER) | payer BC ==
[2024-07-04 09:40] VITALS: RESP 16; TEMP 98
--- NOTE | 2024-07-04 10:16 | ED ---
Dizziness HPI - General Chief Complaint: Dizziness Stated Complaint: Dizziness/Ears Ringing Time Seen by Provider: 07/04/24 09:56 Source: patient Mode of arrival: wheelchair Limitations: no limitations - History of Present Illness Initial Comments: This is a 33-year-old female with history of hypothyroidism and gastroparesis presenting for intermittent dizziness/lightheadedness started at 0830 this morning. Patient states she was relaxing at the time when she began experiencing symptoms along with sensation of a fast, hard heartbeat. Patient endorses similar symptoms last night but this spontaneous resolution. Patient also endorses nausea and feeling "warm". States symptoms worsen with position change. Patient endorses recently starting 2 new medications 5 days ago including vonoprazan. Denies fever, chills, chest pain, dyspnea, abdominal pain, N/V/D, urinary symptoms. MD Complaint: dizziness, lightheadedness Onset/Timin -: hour(s) Time: 08:30 Timing: gradual onset, intermittent Description: lightheadedness, off-balance History of Same: No History of Trauma: No Worsens With: position Associated Symptoms: other (Palpitations) - Related Data Home Medications Medication Instructions Recorded Confirmed Levothyroxine Sodium [Synthroid] 125 mcg PO DAILY 12/22/23 07/04/24 Dicyclomine [Bentyl] 20 mg PO QID PRN 07/04/24 07/04/24 Prochlorperazine [Compazine] 5 mg PO TID PRN 07/04/24 07/04/24 Vonoprazan Fumarate [Voquezna] 10 mg PO DAILY 07/04/24 07/04/24 diphenhydrAMINE HCL [Benadryl] 25 mg PO HS 07/04/24 07/04/24 Allergies Allergy/AdvReac Type Severity Reaction Status Date / Time No Known Allergies Allergy Verified 07/04/24 11:57 Review of Systems ROS Statement: Those systems with pertinent positive or pertinent negative responses have been documented in the HPI. ROS Other: All systems not noted in ROS Statement are negative. Past Medical History Past Medical History: Thyroid Disorder Additional Past Medical History / Comment(s): History of delivery. Hx of migraine headaches. gastroparesis History of Any Multi-Drug Resistant Organisms: None Reported Past Surgical History: Section, Tubal Ligation Additional Past Surgical History / Comment(s): section x3; wisdom tooth extraction x4 Past Anesthesia/Blood Transfusion Reactions: No Reported Reaction Past Psychological History: No Psychological Hx Reported Smoking Status: Never smoker Past Alcohol Use History: Occasional Past Drug Use History: None Reported - Past Family History Brother(s) Additional Family Medical History / Comment(s): open heart surgery as a baby Sister(s) Additional Family Medical History / Comment(s): narcolepsy Father Family Medical History: No Reported History Mother Family Medical History: No Reported History General Exam Limitations: no limitations General appearance: alert, in no apparent distress Head exam: Present: atraumatic, normocephalic, normal inspection Eye exam: Present: normal appearance, PERRL, EOMI. Absent: scleral icterus, conjunctival injection, periorbital swelling ENT exam: Present: normal exam, mucous membranes moist Neck exam: Present: normal inspection. Absent: tenderness, meningismus, lymphadenopathy Respiratory exam: Present: normal lung sounds bilaterally. Absent: respiratory distress, wheezes, rales, rhonchi, stridor, accessory muscle use, decreased breath sounds, prolonged expiratory Cardiovascular Exam: Present: normal rhythm, normal heart sounds, other (Bilateral radial pulse +2). Absent: systolic murmur, diastolic murmur, rubs, gallop, clicks GI/Abdominal exam: Present: soft, normal bowel sounds. Absent: distended, tenderness, guarding, rebound, rigid Extremities exam: Present: normal inspection, full ROM, normal capillary refill. Absent: tenderness, pedal edema, joint swelling, calf tenderness Back exam: Present: normal inspection Neurological exam: Present: alert, oriented X3, CN II-XII intact Psychiatric exam: Present: normal affect, normal mood Skin exam: Present: warm, dry, intact, normal color. Absent: rash Course Vital Signs 07/04/24 07/04/24 09:35 14:33 Temperature 98.0 F Pulse Rate 128 H 87 Respiratory 16 16 Rate Blood Pressure 130/84 104/74 O2 Sat by Pulse 99 98 Oximetry Medical Decision Making - Medical Decision Making Was pt. sent in by a medical professional or institution (, PA, [employer], urgent care, hospital, or long term...) When possible be specific @ -No Did you speak to anyone other than the patient for history (EMS, parent, family, police, friend...)? What history was obtained from this source @ -No Did you review nursing and triage notes (agree or disagree)? Why? @ -I reviewed and agree with nursing and triage notes Were old charts reviewed (outside hosp., previous admission, EMS record, old EKG, old radiological studies, urgent care reports/EKG's, long term records)? Report findings @ -No old charts were reviewed Differential Diagnosis (chest pain, altered mental status, abdominal pain women, abdominal pain men, vaginal bleeding, weakness, fever, dyspnea, syncope, headache, dizziness, GI bleed, back pain, seizure, CVA, palpatations, mental health, musculoskeletal)? @ -Differential Dizziness: Benign paroxysmal positional Vertigo, Meniere's disease, otitis media, acoustic neuroma, vertebrobasilar insufficiency, cerebellar stroke, encephalitis, hypovolemic, arrhythmia, coronary artery syndrome, anemia, this is not meant to be an all-inclusive list EKG interpreted by me (3pts min.). @ -Sinus tachycardia with incomplete RBBB. No ST deviation or T wave inversion. Ventricular rate 101 bpm, SALLY 144 ms, QRS 106 ms, QTc 402 ms X-rays interpreted by me (1pt min.). @ -CXR shows no acute cardiopulmonary process CT interpreted by me (1pt min.). @ -None done U/S interpreted by me (1pt. min.). @ -None done What testing was considered but not performed or refused? (CT, X-rays, U/S, labs)? Why? @ -None What meds were considered but not given or refused? Why? @ -None Did you discuss the management of the patient with other professionals (professionals i.e. , PA, [employer], lab, RT, psych nurse, forensic social worker, design studio consultant, teacher, dispatch officer, case manager specialist)? Give summary @ -No Was smoking cessation discussed for >3mins.? @ -No Was critical care preformed (if so, how long)? @ -No Were there social determinants of health that impacted care today? How? (Homelessness, low income, unemployed, alcoholism, drug addiction, transportation, low edu. Level, literacy, decrease access to med. care, nursing home, r ehab)? @ -No Was there de-escalation of care discussed even if they declined (Discuss DNR or withdrawal of care, Hospice)? DNR status @ -No What co-morbidities impacted this encounter? (DM, HTN, Smoking, COPD, CAD, Cancer, CVA, ARF, Chemo, Hep., AIDS, mental health diagnosis, sleep apnea, morbid obesity)? @ -None Was patient admitted / discharged? Hospital course, mention meds given and route, prescriptions, significant lab abnormalities, going to OR and other pertinent info. @ -Lab work unremarkable except for low TSH (0.015) with normal T4 (1.75). Troponin WNL. UA and urine hCG negative. CXR shows no acute cardiopulmonary process. Patient provided IV normal saline. Repeat vital signs show reduction of pulse from 128 to 87 following IVF administration with patient stating that she feels somewhat better. Recommended to increase oral fluid rehydration. Advised follow-up with PCP for any ongoing or worsening symptoms. Discussed patient with Dr. Krishna. Undiagnosed new problem with uncertain prognosis? @ -No Drug Therapy requiring intensive monitoring for toxicity (Heparin, Nitro, Insulin, Cardizem)? @ -No Were any procedures done? @ -No Diagnosis/symptom? @ -Dizziness, dehydration Acute, or Chronic, or Acute on Chronic? @ -Acute Uncomplicated (without systemic symptoms) or Complicated (systemic symptoms)? @ -Complicated Side effects of treatment? @ -No Exacerbation, Progression, or Severe Exacerbation? @ -No Poses a threat to life or bodily function? How? (Chest pain, USA, NH, pneumonia, PE, COPD, DKA, ARF, appy, cholecystitis, CVA, Diverticulitis, Homicidal, Suicidal, threat to staff... and all critical care pts) @ -No - Lab Data Result diagrams: 07/04/24 10:58 07/04/24 10:58 Lab Results 07/04/24 07/04/24 07/04/24 Range/Units 10:58 10:58 10:58 WBC 6.25 (4.50-10.00) 10*3/uL RBC 4.44 (4.10-5.20) 10*6/uL Hgb 14.2 (12.0-15.0) g/dL Hct 39.1 (37.2-46.3) % MCV 88.1 (80.0-97.0) fL MCH 32.0 (27.0-32.0) pg MCHC 36.3 (32.0-37.0) g/dL Plt Count 250 (140-440) 10*3/uL MPV 8.7 L (9.5-12.2) fL Immature Gran % (Auto) 0.3 % Neutrophils % 67.2 % Lymphocytes % 24.3 % Monocytes % 6.6 % Eosinophils % 1.0 % Basophils % 0.6 % Immature Gran # 0.02 (0.00-0.04) 10*3/uL Neutrophils # 4.20 (1.80-7.70) 10*3/uL Lymphocytes # 1.52 (0.90-5.00) 10*3/uL Monocytes # 0.41 (0.20-1.00) 10*3/uL Eosinophils # 0.06 (0.04-0.35) 10*3/uL Basophils # 0.04 (0.00-0.10) 10*3/uL PT 11.9 (10.0-12.5) sec INR 1.1 (<1.2) APTT 24.4 (22.0-30.0) sec Sodium 141 (137-145) mmol/L Potassium 4.0 (3.5-5.1) mmol/L Chloride 104 (98-107) mmol/L Carbon Dioxide 26 (22-30) mmol/L Anion Gap 11 mmol/L BUN 11 (7-17) mg/dL Creatinine 0.77 (0.52-1.04) mg/dL Est GFR (CKD-EPI)AfAm >90 (>60 ml/min/1.73 sqM) Est GFR (CKD-EPI)NonAf >90 (>60 ml/min/1.73 sqM) Glucose 92 (74-99) mg/dL Calcium 9.8 (8.4-10.2) mg/dL Magnesium 1.8 (1.6-2.3) mg/dL Total Bilirubin 0.7 (0.2-1.3) mg/dL AST 20 (14-36) U/L ALT 16 (4-34) U/L Alkaline Phosphatase 45 (38-126) U/L Troponin I (0.000-0.034) ng/mL Total Protein 7.6 (6.3-8.2) g/dL Albumin 4.8 (3.5-5.0) g/dL TSH <0.015 L (0.465-4.680) mIU/L Free T4 1.75 (0.78-2.19) ng/dL Urine Color Urine Appearance (Clear) Urine pH (5.0-8.0) Ur Specific Alpine (1.001-1.035) Urine Protein (Negative) Urine Glucose (UA) (Negative) Urine Ketones (Negative) Urine Blood (Negative) Urine Nitrite (Negative) Urine Bilirubin (Negative) Urine Urobilinogen (<2.0) mg/dL Ur Leukocyte Esterase (Negative) Urine HCG, Qual (Not Detectd) 07/04/24 07/04/24 07/04/24 Range/Units 10:58 13:24 13:24 WBC (4.50-10.00) 10*3/uL RBC (4.10-5.20) 10*6/uL Hgb (12.0-15.0) g/dL Hct (37.2-46.3) % MCV (80.0-97.0) fL MCH (27.0-32.0) pg MCHC (32.0-37.0) g/dL Plt Count (140-440) 10*3/uL MPV (9.5-12.2) fL Immature Gran % (Auto) % Neutrophils % % Lymphocytes % % Monocytes % % Eosinophils % % Basophils % % Immature Gran # (0.00-0.04) 10*3/uL Neutrophils # (1.80-7.70) 10*3/uL Lymphocytes # (0.90-5.00) 10*3/uL Monocytes # (0.20-1.00) 10*3/uL Eosinophils # (0.04-0.35) 10*3/uL Basophils # (0.00-0.10) 10*3/uL PT (10.0-12.5) sec INR (<1.2) APTT (22.0-30.0) sec Sodium (137-145) mmol/L Potassium (3.5-5.1) mmol/L Chloride (98-107) mmol/L Carbon Dioxide (22-30) mmol/L Anion Gap mmol/L BUN (7-17) mg/dL Creatinine (0.52-1.04) mg/dL Est GFR (CKD-EPI)AfAm (>60 ml/min/1.73 sqM) Est GFR (CKD-EPI)NonAf (>60 ml/min/1.73 sqM) Glucose (74-99) mg/dL Calcium (8.4-10.2) mg/dL Magnesium (1.6-2.3) mg/dL Total Bilirubin (0.2-1.3) mg/dL AST (14-36) U/L ALT (4-34) U/L Alkaline Phosphatase (38-126) U/L Troponin I 0.016 (0.000-0.034) ng/mL Total Protein (6.3-8.2) g/dL Albumin (3.5-5.0) g/dL TSH (0.465-4.680) mIU/L Free T4 (0.78-2.19) ng/dL Urine Color Light Yellow Urine Appearance Clear (Clear) Urine pH 6.5 (5.0-8.0) Ur Specific Alpine 1.015 (1.001-1.035) Urine Protein Negative (Negative) Urine Glucose (UA) Negative (Negative) Urine Ketones Negative (Negative) Urine Blood Negative (Negative) Urine Nitrite Negative (Negative) Urine Bilirubin Negative (Negative) Urine Urobilinogen <2.0 (<2.0) mg/dL Ur Leukocyte Esterase Negative (Negative) Urine HCG, Qual Not Detected (Not Detectd) Disposition Clinical Impression: Dehydration, Dizziness Disposition: HOME SELF-CARE Condition: Good Instructions (If sedation given, give patient instructions): Dehydration (ED), Dizziness (ED) Additional Instructions: Follow-up with PCP in the next 24-48 hours for further evaluation and workup Is patient prescribed a controlled substance at d/c from ED?: No Referrals: Juan Jose Herbert MD [Primary Care Provider] - 1-2 days Time of Disposition: 12:49
--- NOTE | 2024-07-04 10:35 | XR ---
EXAMINATION TYPE: XR chest 2V DATE OF EXAM: 07/04/2024 10:26 AM COMPARISON: 12/02/2022 CLINICAL INDICATION: Female, 33 years old with history of Tachycardia, dizziness, , TECHNIQUE: PA and lateral views FINDINGS: The cardiomediastinal silhouette, aorta, and pulmonary vasculature are within normal limits. Lungs an d pleural spaces are clear. IMPRESSION: No acute cardiopulmonary process. [facility], , 07/04/2024 10:33 AM
[2024-07-04] MEDS: SODIUM CHLORIDE 0.9% 1,000 ML IV STA (11:00)
[2024-07-04 11:13] LABS: Basophils # (A) 0.04 10*3/uL (0.00-0.10); Basophils % (A) 0.6 %; Eosinophils # (A) 0.06 10*3/uL (0.04-0.35); HCT 39.1 % (37.2-46.3); HGB 14.2 g/dL (12.0-15.0); Lymphocytes # (A) 1.52 10*3/uL (0.90-5.00); Lymphocytes % (A) 24.3 %; MCHC 36.3 g/dL (32.0-37.0); MCV 88.1 fL (80.0-97.0); Mean Platelet Volume 8.7 fL (9.5-12.2); Monocytes # (A) 0.41 10*3/uL (0.20-1.00); Monocytes % (A) 6.6 %; Neutrophils % (A) 67.2 %; Platelet Count 250 10*3/uL (140-440); RBC 4.44 10*6/uL (4.10-5.20); RDW 12.9 % (11.5-14.5); WBC 6.25 10*3/uL (4.50-10.00)
[2024-07-04 11:25] LABS: INR 1.1 (<1.2); Partial Thromboplastin Time 24.4 sec (22.0-30.0); Prothrombin Time 11.9 sec (10.0-12.5)
[2024-07-04 11:28] LABS: ALT 16 U/L (4-34); AST 20 U/L (14-36); African American GFR (CKD) >90 (>60 ml/min/1.73 sqM); Albumin 4.8 g/dL (3.5-5.0); Alkaline Phosphatase 45 U/L (38-126); Anion Gap 11 mmol/L; Blood Urea Nitrogen 11 mg/dL (7-17); Calcium 9.8 mg/dL (8.4-10.2); Carbon Dioxide 26 mmol/L (22-30); Chloride 104 mmol/L (98-107); Glucose 92 mg/dL (74-99); Magnesium 1.8 mg/dL (1.6-2.3); Non-African American GFR(CKD) >90 (>60 ml/min/1.73 sqM); Sodium 141 mmol/L (137-145); Total Bilirubin 0.7 mg/dL (0.2-1.3); Total Protein 7.6 g/dL (6.3-8.2)
[2024-07-04 12:34] LABS: T4, Free (Free Thyroxine) 1.75 ng/dL (0.78-2.19)
[2024-07-04 13:57] LABS: Appearance,Urine Clear (Clear); Bilirubin,Urine Negative (Negative); Blood,Urine Negative (Negative); Color,Urine Light Yellow; Glucose,Urine (UA) Negative (Negative); Ketones,Urine Negative (Negative); Leukocyte Esterase,Urine Negative (Negative); Nitrite,Urine Negative (Negative); PH, Urine 6.5 (5.0-8.0); Protein,Urine Negative (Negative); Specific Gravity,Urine 1.015 (1.001-1.035); Urobilinogen,Urine <2.0 mg/dL (<2.0)
[2024-07-04 14:34] VITALS: BP 104/74; PULSE 87
== END 2024-07-04 14:34 | disposition home or self-care (01) ==
LOC: EC 09:31
DX: R42 Dizziness and giddiness (principal); E86.0 Dehydration; R00.0 Tachycardia, unspecified; I45.10 Unspecified right bundle-branch block
CPT/HCPCS: 36415; 71046; 80053; 81003; 81025; 83735; 84439; 84443; 84484; 85025; 85610; 85730; 93005; 96360; 99284

== ENCOUNTER → 2024-07-12 | Outpatient (CLI) | payer BC ==
--- NOTE | 2024-07-12 11:42 | FL ---
EXAMINATION TYPE: FL UGI air w small bowel DATE OF EXAM: 07/12/2024 10:11 AM COMPARISON: 12/22/2023 CLINICAL INDICATION:Female, 33 years old with history of K31.84 GASTROPARESIS; TECHNIQUE: The procedure was explained and patient history elicited. All patient questions were ans wered prior to start of procedure. A superintendent pressure radiograph of the abdomen was also reviewed. Multiple flu oroscopic spot images of the esophagus, stomach and duodenum were obtained following ingestion of liq uid barium and EZ-gas crystals. After the completion of the upper gastrointestinal examination, a de tailed small bowel examination was performed. The patient was asked to ingest additional liquid dwight um and incremental frontal abdominal radiographs were then taken until contrast was visualized in the cecum. DAP: NOT REPORTED [id number] FINDINGS: Upper GI examination: The superintendent pressure abdominal radiograph demonstrates a normal bowel gas pattern without dilated loops of small or large bowel. There is no evidence for organomegaly or pneumoperitoneum. No abnormal calcificati ons. The visualized osseous structures are intact. 2 left tubal ligation clips present. The esophagus appears unremarkable without evidence of focal stricture, ulceration or abnormal outpou kiki. No hiatal hernia was visualized. No evidence of gastroesophageal reflux was seen. The stom ach is distended. The duodenum demonstrate a normal course and contour. There is no evidence of foca l gastric or duodenal ulceration, stricture, or abnormal outpouching. Small bowel mucosal folds are f elt to be within normal limits. Detailed small bowel examination: Contrast is seen extending from the duodenojejunal junction into the cecum after 45 min, which is wit hin the expected time period. The small bowel follows normal distribution and contour without any ev idence of extraluminal or intraluminal irregularity. There is no displacement of bowel loops or extr aluminal extravasation of contrast material. There is redundant sigmoid colon noted in the right lowe r quadrant. The appendix is more midline and superior.. The appendix is visualized distended with con trast. IMPRESSION: 1. Distended gastric lumen which can be sequela of gastroparesis. Additionally when reviewing CT the duodenum is narrowed as it crosses the aorta. Correlate for superior mesenteric artery syndrome which results in compression of the duodenum as it crosses the aorta. Otherwise no significant finding on the upper gastrointestinal examination. 2. Redundant colon . 3. Normal detailed small bowel examination. [facility], , 07/12/2024 11:40 AM
== END | disposition home or self-care (01) ==
LOC: RADFLMAIN 08:27
PROVIDERS: ATTEND Internal Medicine Gastroenterology
DX: K31.84 Gastroparesis (principal); Q43.8 Other specified congenital malformations of intestine
CPT/HCPCS: 74240; 74248

== ENCOUNTER → 2024-07-16 | Outpatient (CLI) | payer BC ==
--- NOTE | 2024-07-16 09:31 | CT ---
EXAMINATION TYPE: CT abdomen without contrast. CT angiogram abdomen with contrast. DATE OF EXAM: 07/16/2024 9:00 AM COMPARISON: 12/22/2023. CLINICAL INDICATION: Female, 33 years old with history of R93.5 ABN FINDINGS ON DX IMAGING OF ABD REG IONS; PHH, rule out superior mesenteric artery syndrome TECHNIQUE: CT noncontrast abdomen followed by CT angiogram abdomen. Multiple thin slice sub-millimeter images were obtained before and after administration of contrast. 3-D reconstructed images and maximum intensity projection images were obtained on a separate works tation. CT angio abdomen CT Contrast: Contrast used:100 ml mL of Isovue 370 with IV Contrast, Oral contrast used: None CT DLP: 511 mGycm, Automated exposure control for dose reduction was used. FINDINGS: CTA Abdomen and pelvis: The abdominal aorta does not demonstrate aneurysmal dilatation. The origins of the superior mesenteric artery, renal arteries, inferior mesenteric artery, and celiac axis are pa tent. The iliac vessels are normal in morphology LOWER CHEST: No evidence of focal consolidation, pneumothorax or pleural effusion. LIVER: Unremarkable GALLBLADDER AND BILE DUCTS: Unremarkable. PANCREAS: Unremarkable. SPLEEN: Unremarkable. ADRENAL GLANDS: Unremarkable. KIDNEYS AND URETERS: No evidence of hydronephrosis or obstructing renal calculus. The ureters are unr emarkable. Nonobstructing left renal calculus measuring up to 4 mm. PELVIS BLADDER: Unremarkable REPRODUCTIVE: Unremarkable. ABDOMEN & PELVIS STOMACH AND BOWEL: No evidence of bowel obstruction. The duodenum PERITONEUM: No evidence of pneumoperitoneum or free fluid. VASCULATURE: No evidence of aortic aneurysm. There is narrowing of the left renal vein as it crosses the aorta series 10 image 265. MUSCULOSKELETAL: No acute osseous abnormalities LYMPH NODES: No gross evidence for lymphadenopathy. SOFT TISSUE/ABDOMINAL WALL: Unremarkable IMPRESSION: 1. The duodenum is narrowed as it crosses the aorta but is thought to be due to patient's thin body habitus and not thought to be due to the superior mesenteric artery as a cause. This does not mean th at there is may not be some degree of obstruction of the third part. 2. Narrowing of the left renal artery as it crosses the aorta and superior mesenteric artery suspici ous for Nutcracker syndrome. 3. Nonobstructing left renal calculus [facility], , 07/16/2024 9:28 AM
== END | disposition home or self-care (01) ==
LOC: RADCTMAIN 08:14
PROVIDERS: ATTEND Internal Medicine Gastroenterology
DX: I70.1 Atherosclerosis of renal artery (principal); N20.0 Calculus of kidney; R93.5 Abnormal findings on diagnostic imaging of other abdominal regions, including retroperitoneum
CPT/HCPCS: 74175; Q9967

== ENCOUNTER 2024-09-13 12:39 | Emergency (ER) | payer BC ==
[2024-09-13 12:55] VITALS: RESP 18; TEMP 97.8
[2024-09-13] MEDS: SODIUM CHLORIDE 0.9% 1,000 ML IV ONE (13:22)
[2024-09-13 13:29] LABS: Basophils # (A) 0.03 10*3/uL (0.00-0.10); Basophils % (A) 0.5 %; Eosinophils # (A) 0.06 10*3/uL (0.04-0.35); Eosinophils % (A) 1.0 %; HCT 35.0 % (37.2-46.3); HGB 12.5 g/dL (12.0-15.0); Lymphocytes # (A) 1.15 10*3/uL (0.90-5.00); Lymphocytes % (A) 18.4 %; MCH 31.9 pg (27.0-32.0); MCHC 35.7 g/dL (32.0-37.0); MCV 89.3 fL (80.0-97.0); Monocytes # (A) 0.41 10*3/uL (0.20-1.00); Monocytes % (A) 6.6 %; Neutrophils # (A) 4.56 10*3/uL (1.80-7.70); Neutrophils % (A) 73.0 %; Platelet Count 214 10*3/uL (140-440); RBC 3.92 10*6/uL (4.10-5.20); RDW 12.8 % (11.5-14.5); WBC 6.24 10*3/uL (4.50-10.00)
[2024-09-13 13:42] LABS: ALT 13 U/L (4-34); AST 19 U/L (14-36); African American GFR (CKD) >90 (>60 ml/min/1.73 sqM); Albumin 4.1 g/dL (3.5-5.0); Alkaline Phosphatase 48 U/L (38-126); Anion Gap 7 mmol/L; Blood Urea Nitrogen 11 mg/dL (7-17); Calcium 9.3 mg/dL (8.4-10.2); Carbon Dioxide 24 mmol/L (22-30); Chloride 106 mmol/L (98-107); Glucose 93 mg/dL (74-99); Non-African American GFR(CKD) >90 (>60 ml/min/1.73 sqM); Potassium 4.3 mmol/L (3.5-5.1); Sodium 137 mmol/L (137-145); Total Protein 6.4 g/dL (6.3-8.2)
--- NOTE | 2024-09-13 14:19 | ED ---
Dizziness HPI - General Chief Complaint: Syncope Stated Complaint: Syncope Time Seen by Provider: 09/13/24 12:45 Source: patient, EMS, RN notes reviewed Mode of arrival: EMS Limitations: no limitations - History of Present Illness Initial Comments: Flush, feeling off she states that she squatted down in which staff came out from the office and put in wheelchair and states that she began to worsen and whether back to her room she states that she passed out at that time. Patient states she had this happen in the past but usually happens immediately during the blood draw. Denies chest pain shortness of breath she does take medications for gastroparesis and thyroidism. - Related Data Home Medications Medication Instructions Recorded Confirmed Levothyroxine Sodium [Synthroid] 125 mcg PO DAILY 12/22/23 07/04/24 Dicyclomine [Bentyl] 20 mg PO QID PRN 07/04/24 07/04/24 Prochlorperazine [Compazine] 5 mg PO TID PRN 07/04/24 07/04/24 Vonoprazan Fumarate [Voquezna] 10 mg PO DAILY 07/04/24 07/04/24 diphenhydrAMINE HCL [Benadryl] 25 mg PO HS 07/04/24 07/04/24 Allergies Allergy/AdvReac Type Severity Reaction Status Date / Time No Known Allergies Allergy Verified 09/13/24 12:55 Review of Systems ROS Statement: Those systems with pertinent positive or pertinent negative responses have been documented in the HPI. ROS Other: All systems not noted in ROS Statement are negative. Past Medical History Past Medical History: Thyroid Disorder Additional Past Medical History / Comment(s): History of delivery. Hx of migraine headaches. gastroparesis History of Any Multi-Drug Resistant Organisms: None Reported Past Surgical History: Section, Tubal Ligation Additional Past Surgical History / Comment(s): section x3; wisdom tooth extraction x4 Past Anesthesia/Blood Transfusion Reactions: No Reported Reaction Past Psychological History: No Psychological Hx Reported Smoking Status: Never smoker Past Alcohol Use History: Occasional Past Drug Use History: None Reported - Past Family History Brother(s) Additional Family Medical History / Comment(s): open heart surgery as a baby Sister(s) Additional Family Medical History / Comment(s): narcolepsy Father Family Medical History: No Reported History Mother Family Medical History: No Reported History General Exam Limitations: no limitations General appearance: alert, in no apparent distress Head exam: Present: atraumatic, normocephalic, normal inspection Eye exam: Present: normal appearance, PERRL, EOMI. Absent: scleral icterus, conjunctival injection, periorbital swelling ENT exam: Present: normal exam, normal oropharynx, mucous membranes moist Neck exam: Present: normal inspection, full ROM. Absent: tenderness, meningismus, lymphadenopathy Respiratory exam: Present: normal lung sounds bilaterally. Absent: respiratory distress, wheezes, rales, rhonchi, stridor Cardiovascular Exam: Present: regular rate, normal rhythm, normal heart sounds. Absent: systolic murmur, diastolic murmur, rubs, gallop, clicks GI/Abdominal exam: Present: soft, normal bowel sounds. Absent: distended, tenderness, guarding, rebound, rigid Neurological exam: Present: alert, oriented X3, CN II-XII intact, reflexes normal. Absent: motor sensory deficit Skin exam: Present: warm, dry, intact, normal color. Absent: rash Course Vital Signs 09/13/24 12:46 Temperature 97.8 F Pulse Rate 81 Respiratory 18 Rate Blood Pressure 98/68 O2 Sat by Pulse 100 Oximetry EKG Findings - EKG Comments: EKG Findings:: EKG performed at 12: 56 sinus rhythm rate of 83 DE 171 QRS 103 QT/QTc 385/424 - EKG Results: EKG: interpreted by [email or web address] Medical Decision Making - Medical Decision Making Was pt. sent in by a medical professional or institution (, PA, BRANCH OPERATIONS MANAGER, urgent care, hospital, or senior care...) When possible be specific @ -PCP Did you speak to anyone other than the patient for history (EMS, parent, family, police, friend...)? What history was obtained from this source @ -No Did you review nursing and triage notes (agree or disagree)? Why? @ -I reviewed and agree with nursing and triage notes Were old charts reviewed (outside hosp., previous admission, EMS record, old EKG, old radiological studies, urgent care reports/EKG's, senior care records)? Report findings @ -No old charts were reviewed Differential Diagnosis (chest pain, altered mental status, abdominal pain women, abdominal pain men, vaginal bleeding, weakness, fever, dyspnea, syncope, headache, dizziness, GI bleed, back pain, seizure, CVA, palpatations, mental health, musculoskeletal)? @ -Differential Syncope: Valvular disease, hypertrophic cardiomyopathy, pulmonary embolism, tamponade, tachycardia, bradycardia, RI, hypovolemia, hemorrhage, dissection, anemia, intracranial hemorrhage, seizure, hypoglycemia, carbon monoxide poisoning, this is not meant to be an all-inclusive list. EKG interpreted by me (3pts min.). @ -As above X-rays interpreted by me (1pt min.). @ -None done CT interpreted by me (1pt min.). @ -None done U/S interpreted by me (1pt. min.). @ -None done What testing was considered but not performed or refused? (CT, X-rays, U/S, labs)? Why? @ -None What meds were considered but not given or refused? Why? @ -None Did you discuss the management of the patient with other professionals (professionals i.e. DrKeeley, PA, BRANCH OPERATIONS MANAGER, lab, RT, psych nurse, social worker delinquency prevention, balancer scale, teacher, special skills officer, nurse case manager)? Give summary @ -No Was smoking cessation discussed for >3mins.? @ -No Was critical care preformed (if so, how long)? @ -No Were there social determinants of health that impacted care today? How? (Homelessness, low income, unemployed, alcoholism, drug addiction, transportation, low edu. Level, literacy, decrease access to med. care, snf, rehab)? @ -No Was there de-escalation of care discussed even if they declined (Discuss DNR or withdrawal of care, Hospice)? DNR status @ -No What co-morbidities impacted this encounter? (DM, HTN, Smoking, COPD, CAD, Cancer, CVA, ARF, Chemo, Hep., AIDS, mental health diagnosis, sleep apnea, morbid obesity)? @ -None Was patient admitted / discharged? Hospital course, mention meds given and route, prescriptions, significant lab abnormalities, going to OR and other pertinent info. @ -Discharge laboratory studies unremarkable feels great improved with IV fluids is currently asymptomatic. Patient has vasovagal syncopal episode. Undiagnosed new problem with uncertain prognosis? @ -No Drug Therapy requiring intensive monitoring for toxicity (Heparin, Nitro, Insulin, Cardizem)? @ -No Were any procedures done? @ -No Diagnosis/symptom? @ -Vasovagal syncope Acute, or Chronic, or Acute on Chronic? @ -Acute Uncomplicated (without systemic symptoms) or Complicated (systemic symptoms)? @ -Complicated Side effects of treatment? @ -No Exacerbation, Progression, or Severe Exacerbation? @ -No Poses a threat to life or bodily function? How? (Chest pain, USA, RI, pneumonia, PE, COPD, DKA, ARF, appy, cholecystitis, CVA, Diverticulitis, Homicidal, Suicidal, threat to staff... and all critical care pts) @ -No - Lab Data Result diagrams: 09/13/24 13:18 09/13/24 13:18 Lab Results 09/13/24 09/13/24 Range/Units 13:18 13:18 WBC 6.24 (4.50-10.00) 10*3/uL RBC 3.92 L (4.10-5.20) 10*6/uL Hgb 12.5 (12.0-15.0) g/dL Hct 35.0 L (37.2-46.3) % MCV 89.3 (80.0-97.0) fL MCH 31.9 (27.0-32.0) pg MCHC 35.7 (32.0-37.0) g/dL Plt Count 214 (140-440) 10*3/uL MPV 8.8 L (9.5-12.2) fL Immature Gran % (Auto) 0.5 % Neutrophils % 73.0 % Lymphocytes % 18.4 % Monocytes % 6.6 % Eosinophils % 1.0 % Basophils % 0.5 % Immature Gran # 0.03 (0.00-0.04) 10*3/uL Neutrophils # 4.56 (1.80-7.70) 10*3/uL Lymphocytes # 1.15 (0.90-5.00) 10*3/uL Monocytes # 0.41 (0.20-1.00) 10*3/uL Eosinophils # 0.06 (0.04-0.35) 10*3/uL Basophils # 0.03 (0.00-0.10) 10*3/uL Sodium 137 (137-145) mmol/L Potassium 4.3 (3.5-5.1) mmol/L Chloride 106 (98-107) mmol/L Carbon Dioxide 24 (22-30) mmol/L Anion Gap 7 mmol/L BUN 11 (7-17) mg/dL Creatinine 0.68 (0.52-1.04) mg/dL Est GFR (CKD-EPI)AfAm >90 (>60 ml/min/1.73 sqM) Est GFR (CKD-EPI)NonAf >90 (>60 ml/min/1.73 sqM) Glucose 93 (74-99) mg/dL Calcium 9.3 (8.4-10.2) mg/dL Total Bilirubin 0.7 (0.2-1.3) mg/dL AST 19 (14-36) U/L ALT 13 (4-34) U/L Alkaline Phosphatase 48 (38-126) U/L Total Protein 6.4 (6.3-8.2) g/dL Albumin 4.1 (3.5-5.0) g/dL Disposition Clinical Impression: Vasovagal syncope Disposition: HOME SELF-CARE Condition: Stable Instructions (If sedation given, give patient instructions): Syncope (ED) Additional Instructions: Please return to the Emergency Department if symptoms worsen or any other concerns. Is patient prescribed a controlled substance at d/c from ED?: No Referrals: Juan Jose Herbert MD [Primary Care Provider] - 1-2 days Time of Disposition: 15:09
[2024-09-13 15:08] VITALS: BP 103/64; PULSE 90
== END 2024-09-13 15:28 | disposition home or self-care (01) ==
LOC: EC 12:39
DX: R55 Syncope and collapse (principal)
CPT/HCPCS: 36415; 80053; 85025; 93005; 96360; 99284